=== PATIENT | male | born 1955 | race Caucasian/White ===

== ENCOUNTER → 2017-12-13 12:10 | Outpatient (CLI) | payer OTHER, SELFPAY ==
[2017-12-16 12:08] LABS: Creatinine, Urine 131.4 mg/dL (Not Estab.); N-Telopeptide, Urine 692 nmol BCE (Not Estab.)
[2017-12-16 14:12] LABS: NTX:Creatinine Ratio, Urine 60 (0-62)
== END ==
PROVIDERS: Family Provider Internal Medicine; PCP Internal Medicine; Visit Provider Internal Medicine Endocrinology, Diabetes & Metabolism
DX: M81.8 Other osteoporosis without current pathological fracture (principal); Z87.310 Personal history of (healed) osteoporosis fracture
CPT/HCPCS: 82523

== ENCOUNTER → 2019-09-26 08:22 | Outpatient (CLI) | payer OTHER, SELFPAY ==
--- NOTE | 2019-09-26 08:30 | BD_ITS ---
STUDY: DUAL ENERGY X-RAY ABSORPTIOMETRY / DXA REASON FOR EXAM: Male, 64 years old. History of osteoporosis. Loss of height. TECHNIQUE: Bone Mineral Density (BMD) measurements of lumbar spine and bilateral hips were obtained. COMPARISON: Comparison is made with prior examination dated September 23, 2017. FINDINGS: Lumbar Spine (L1-L4): g/cm2 (0.658) / T-score (-4.8) / Z-score (-4.4) Findings are suggestive of osteoporosis with a high fracture risk. Left Femur Total: g/cm2 (0.613) / T-score (-3.4) / Z-score (-2.9) Left Femoral Neck: g/cm2 (0.609) / T-score (-3.5) / Z-score (-2.5) Right Femur Total: g/cm2 (0.558) / T-score (-3.8) / Z-score (-3.3) Right Femoral Neck: g/cm2 (0.586) / T-score (-3.7) / Z-score (-2.7) The T-Scores on the most recent prior examination were: Lumbar Spine (L1-L4): There has been improvement of bone density since the previous examination. Left Femur Total: which represents a worsening of 1%. Right Femur Total: which represents an improvement of 6.5%. BD/Dexa Bone Density Study IMPRESSION: The patient is considered osteoporotic as outlined below according to World Vidal Organization (WHO) criteria with a high fracture risk. There has been improvement of bone density since the previous examination. Reference Information: The T-score is the number of standard deviations above or below the standard which is normal for young adults at their peak bone mineral density. The World Health Organization (WHO) interprets the T-scores as follows: Above -1 Normal bone density Between -1 and -2.5 Osteopenia Equal to / or below -2.5 Osteoporosis As a practical clinical guideline, osteopenia may be graded as follows: Mild -1 through -1.5 Moderate -1.6 through -2.0 Severe -2.1 through -2.4 The Z-score is the number of standard deviations above or below age-matched controls. A Z-score of less than -1.5 would be considered abnormal. References: 1. NIH Osteoporosis and Related Bone Diseases http://www.osteo.org 2. International Society for Clinical Densitometry http://www.iscd.org 3. National Osteoporosis Foundation http://www.nof.org Electronically Signed: Scooter Dejesus, at 10:16 EST , Service support ,
== END ==
PROVIDERS: Family Provider Internal Medicine; PCP Internal Medicine
DX: M81.8 Other osteoporosis without current pathological fracture (principal)
CPT/HCPCS: 77080

== ENCOUNTER → 2020-12-13 08:14 | Outpatient (CLI) | payer OTHER, SELFPAY ==
[2020-12-13 12:07] LABS: Absolute Lymphocyte Count 1.85 X10^3/uL (0.83-4.51); Absolute Neutrophil Count 5.3 X10^3/uL (2.0-7.7); Basophil# 0.07 X10^3/uL; Basophil% 0.9 % (0-1); Eosinophil# 0.27 X10^3/uL; Eosinophils% 3.3 % (0-5); Hematocrit 44.6 % (40-54); Hemoglobin 14.1 g/dL (13.0-16.5); Lymphocyte # 1.85 X10^3/ul (4.0); Lymphocyte % 22.5 % (19-41); Mean Corp Hgb Conc 31.6 g/dL (32-36); Mean Corpuscular Hgb 28.8 pg (27.0-32.0); Monocyte# 0.68 X10^3/uL; Monocyte% 8.3 % (0-10); NRBC Flagged by Analyzer 0 % (0-5); Neutrophil # 5.31 X10^3/uL (2.7-7.7); Neutrophil % 64.6 % (47-70); Platelet Count 335 K/mm3 (150-450); RBC Distribution Width CV 12.9 % (11.6-14.6); RBC Distribution Width SD 42.8 fl (35.1-43.9); White Blood Count 8.2 K/mm3 (4.4-11.0)
[2020-12-13 12:54] LABS: Hemoglobin A1c 5.2 % (3.8-5.6)
[2020-12-13 13:23] LABS: ALB/GLOB Ratio 1.3 RATIO (0.9-2.4); AST(SGOT) 21 U/L (15-37); Alanine Aminotransfer ALT/SGPT 42 U/L (16-61); Albumin, Serum 4.1 g/dL (3.2-5.0); Alkaline Phosphatase 92 U/L (45-117); Anion Gap 6 (5-15); BUN 24 mg/dL (7-18); BUN/Creat Ratio 16.1 RATIO (10-20); Calcium,Total 9.1 mg/dL (8.5-10.1); Chloride 108 mmol/L (98-107); Cholesterol 209 mg/dL (200); Creatinine, Serum 1.49 mg/dL (0.70-1.30); EST Glomerular Filtration Rate 51 mL/min (>60); Est Glom Filt Rate - Afr Amer 61 mL/min (>60); Globulin 3.2 g/dL (2.2-4.2); Glucose 85 mg/dL (74-106); High Density Lipoprotein 52 mg/dL; PSA,Total - Annual Screen 1.68 ng/mL (0.00-4.00); Potassium 4.7 mmol/L (3.5-5.1); Protein, Total 7.3 g/dL (6.4-8.2); Sodium Level 140 mmol/L (136-145); Thyroid Stim Hormone (TSH) 0.81 uIU/mL (0.358-3.74); Triglycerides 167 mg/dL; Very Low Density Lipoprotein 33 mg/dL (5-40)
== END ==
PROVIDERS: PCP Internal Medicine; Referring Provider Internal Medicine; Visit Provider Internal Medicine
DX: R53.83 Other fatigue (principal); M81.0 Age-related osteoporosis without current pathological fracture; K21.9 Gastro-esophageal reflux disease without esophagitis; R51.9 Headache, unspecified
CPT/HCPCS: 36415; 80053; 80061; 83036; 84153; 84443; 85025; G0103

== ENCOUNTER → 2020-12-23 08:02 | Outpatient (CLI) | payer OTHER, SELFPAY ==
[2015-09-25 11:25] VITALS: BMI 20.9
--- NOTE | 2020-12-23 08:09 | ECHOD_ITS ---
Reason For Study: MURMUR Procedure This was a 2D Doppler, Color Flow transthoracic echocardiogram. Exam performed in department. Left Ventricle Normal LV size. Left ventricular systolic function is normal. The estimated ejection fraction is 60 %. Stage 1 diastolic dysfunction. No regional wall motion abnormalities noted. Right Ventricle Normal RV size. Normal systolic function. Atria Normal left atrium. Normal right atrium. Mitral Valve Bileaflet diffuse mitral valve thickening. Mild (1+) mitral valve insufficiency. Tricuspid Valve Normal tricuspid valve. Mild tricuspid valve insufficiency. Aortic Valve Normal aortic valve. Pulmonic Valve Normal pulmonic valve. Great Vessels Normal aortic root. The pulmonary artery is normal size. Normal inferior vena cava. Pericardium/Pleural No pericardial effusion. MMode/2D Measurements & Calculations LVIDd: 4.3 cm IVSd: 0.87 cm Ao root diam: 3.2 cm LVIDs: 3.1 cm LVPWd: 0.85 cm LA dimension: 3.0 cm RVDd: 3.3 cm FS: 28.3 % LAV(MOD-bp): 31.1 ml LA A4 area: 12.2 cm2 LAV(MOD-bp) Indexed: 18.8 ml/m2 LAV(MOD-sp2): 28.6 ml LAV(MOD-sp4): 28.9 ml Time Measurements MV dec time: 0.21 sec Doppler Measurements & Calculations MV E max brendan: 66.5 cm/sec Lat Peak E' Brendan: 8.5 cm/sec Med Peak E' Brendan: 7.5 cm/sec MV A max brendan: 50.4 cm/sec E/E' lat: 7.8 E/E' med: 8.9 MV E/A: 1.3 Ao V2 max: 115.7 cm/sec LV V1 max: 99.0 cm/sec PA V2 max: 85.3 cm/sec Ao max P.4 mmHg LV V1 max P.9 mmHg TR max brendan: 204.0 cm/sec TR max P.6 mmHg Interpretation Summary Normal LV size. Left ventricular systolic function is normal. The estimated ejection fraction is 60 %. Stage 1 diastolic dysfunction. Mild tricuspid valve insufficiency. Ordering Physician: Ami Joseph Referring Physician: Jagjit Pandey Performed By: Kathy Melendez, IVANA, RVT
== END ==
PROVIDERS: PCP Internal Medicine; Referring Provider Internal Medicine Cardiovascular Disease; Visit Provider Internal Medicine Cardiovascular Disease
DX: I38 Endocarditis, valve unspecified (principal)
CPT/HCPCS: 93306

== ENCOUNTER → 2020-12-25 10:18 | Outpatient (CLI) | payer OTHER, SELFPAY ==
[2015-09-25 11:25] VITALS: BMI 20.9
== END ==
PROVIDERS: PCP Internal Medicine; Referring Provider Internal Medicine; Visit Provider Internal Medicine
DX: R51.9 Headache, unspecified (principal)
CPT/HCPCS: 95806

== ENCOUNTER → 2021-02-04 20:35 | Outpatient (CLI) | payer OTHER, SELFPAY ==
[2021-01-10 14:17] VITALS: BMI 22.3
== END ==
PROVIDERS: PCP Internal Medicine; Visit Provider Internal Medicine
DX: G47.33 Obstructive sleep apnea (adult) (pediatric) (principal)
CPT/HCPCS: 95810

== ENCOUNTER → 2021-07-01 | Outpatient (CLI) | payer OTHER, SELFPAY ==
[2021-07-01 11:15] VITALS: BMI 22.6
[2021-07-01 12:16] LABS: Mucous, Urine 0 SEEN /hpf (<or=2+)
[2021-07-01 14:55] LABS: Color, Urine Yellow (Yellow); Glucose, Dipstick Normal (Normal); Ketone-Dipstick Negative (Negative); Leukocyte Esterase-Dipstick Negative /ul (Negative); Nitrite-Dipstick Negative (Negative); Occult Blood-Urine 25 /ul (Negative); Protein-Dipstick Negative (Negative); Specific Gravity, Urine 1.015 (1.002-1.030); Urine Bilirubin Dipstick Negative (Negative); Urine Clarity Clear (Clear); Urine Urobilinogen Normal (Normal)
[2021-07-01 15:06] LABS: Bacteria RARE /hpf (None Seen); Red Blood Cells-Urine 0-5 SEEN /hpf (0-5); Squamous Epithelial Cells - UA 0-5 SEEN /hpf (0-5); White Blood Cells 0-5 SEEN /hpf (0-5)
== END | disposition home or self-care (01) ==
LOC: LABSPEC 12:04
PROVIDERS: PCP Internal Medicine; Visit Provider Internal Medicine
DX: R31.9 Hematuria, unspecified (principal)
CPT/HCPCS: 81001

== ENCOUNTER → 2021-07-09 07:27 | Outpatient (CLI) | payer OTHER, SELFPAY ==
[2021-07-01 11:15] VITALS: BMI 22.6
--- NOTE | 2021-07-09 07:28 | US_ITS ---
HISTORY: hematuria. TECHNIQUE: Hoffman scale and color Doppler sagittal and transverse images were obtained of the kidneys. # of images incl. paperwork: 88. COMPARISON: None. FINDINGS: RIGHT KIDNEY: 8.1 cm in length. Cortical thickness 14 mm. Echogenicity within normal limits. No hydronephrosis. 1.9 cm cyst. LEFT KIDNEY: 8.6 cm in length. Cortical thickness 15 mm. Echogenicity within normal limits. No hydronephrosis. 1.7 cm cyst. URINARY BLADDER: Prominent bladder wall with underdistention at 47 cc. Bilateral ureteral jets visualized. PROSTATE GLAND: Enlarged at 5.5 x 5.5 x 3.9 cm with impression on the bladder base and a 3.3 cm nodule. OTHER: Multiple gallstones. US/Kidney and Bladder IMPRESSION: No hydronephrosis. Bilateral renal cysts. Mild bladder wall thickening from underdistention or cystitis. Enlarged prostate gland with a 3.3 cm nodule or mass. at 1003 Reported and signed by: Madalyn Kevin MD Electronically Signed: Madalyn Kevin MD at 10:02 EDT Tel , Service support ,
== END ==
PROVIDERS: PCP Internal Medicine; Referring Provider Internal Medicine; Visit Provider Internal Medicine
DX: R31.9 Hematuria, unspecified (principal)
CPT/HCPCS: 76770

== ENCOUNTER → 2021-07-23 08:26 | Outpatient (CLI) | payer OTHER, SELFPAY ==
--- NOTE | 2021-07-23 08:30 | CT_ITS ---
STUDY: CT ABDOMEN AND PELVIS WITH AND WITHOUT CONTRAST REASON FOR EXAM: Male, 66 years old. GROSS HEMATURIA RADIATION DOSAGE (If Supplied By Facility): CTDIvol = ( 14.01 ) mGy, DLP = ( 1295.37 ) mGycm TECHNIQUE: Transaxial images were obtained from the dome of the diaphragm to the symphysis pubis without oral contrast. IV 100mL Isovue-300 was administered. Sagittal and coronal images were reconstructed. Individualized dose optimization techniques were used for this CT. COMPARISON: Comparison is made with prior renal sonogram dated 07/09/2021. FINDINGS: Emphysematous changes at the lung bases with linear scarring. The visualized portions of the heart are within normal limits. Normal liver. There are multiple small gallstones. Normal spleen. Normal pancreas. Normal bilateral adrenal glands. There is a 1.7 cm cyst in the upper lateral aspect of the midportion of the right kidney as well as a 1.1 cm in the medial aspect of the right kidney. There is also evidence of a 1.3 cm cyst in the lower pole of the right kidney. There is a 1.8 cm cyst in the anterior medial aspect of the upper pole of the left kidney. Normal visualized stomach. Normal small intestine. There are multiple colonic diverticula consistent with diverticulosis. The appendix is visualized and appears normal. Normal abdominal aorta. Normal inferior vena cava. Normal retroperitoneum. Normal urinary bladder. There are prostatic calcifications. The prostate measures 3.7 cm x 4.7 cm. Normal abdominal wall. At least 50% collapse of the L2 vertebra. There is some loss of height of the superior endplate of the T12 vertebrae as well as the superior aspect of the L4 vertebra. There is evidence of a 2.4 cm x 3.5 cm cystic structure in the posterior aspect of the sacrum on the right side extending into the right sacral foramen suggestive of a TARLOV cyst. 8 mm rounded sclerotic focus in the anterior superior aspect of the L3 vertebrae. CT/CT Abd/Pelvis W/WO Contrast IMPRESSION: Bilateral renal cysts. Prostatic calcification and enlargement. This causes an indentation at the bladder base. Findings suggestive of a TARLOV cyst in the right hemisacrum. Electronically Signed: Scooter Dejesus MD at 14:29 EDT , Service support ,
[2021-07-23 08:40] LABS: CREATININE FINGERSTICK 1.2 mg/dL (0.70-1.30); EGFR FINGERSTICK > 60.0000 mL/min (>60)
== END ==
PROVIDERS: PCP Internal Medicine; Referring Provider Urology; Visit Provider Urology
DX: R31.0 Gross hematuria (principal)
CPT/HCPCS: 74178; Q9967

== ENCOUNTER → 2021-07-31 11:56 | Outpatient (CLI) | payer OTHER, SELFPAY ==
[2021-07-31 15:50] LABS: PSA,Total- Diagnostic 1.33 ng/mL (0.0-4.0)
== END ==
PROVIDERS: PCP Internal Medicine; Referring Provider Urology; Visit Provider Urology
DX: R31.0 Gross hematuria (principal)
CPT/HCPCS: 36415; 84153

== ENCOUNTER → 2023-03-17 | Outpatient (CLI) | payer MEDICARE, BC, SELFPAY ==
--- NOTE | 2023-03-17 08:05 | MRI_ITS ---
EXAM: MR HEAD WITHOUT AND WITH INTRAVENOUS CONTRAST, INTERNAL AUDITORY CANAL PROTOCOL CLINICAL INDICATION: ASYMMETRIC HEARING LOSS RIGHT EAR TECHNIQUE: Multiplanar and multisequence MR images of the internal auditory canal were obtained without and with intravenous contrast. CONTRAST: 11ML IV CLARISCAN COMPARISON: No relevant prior studies available. FINDINGS: CRANIAL NERVES: Normal. No mass. No abnormal enhancement. COCHLEA AND SEMICIRCULAR CANALS: Normal. CEREBELLOPONTINE ANGLES: Normal. No mass. BRAIN AND EXTRA-AXIAL SPACES: Unremarkable as visualized. No intra- or extra-axial hemorrhage. No intracranial mass or mass effect. There is preservation of the martinez/white matter interface. Posterior fossa structures are unremarkable. Ventricles are appropriate for age. No hydrocephalus. Basal cisterns are patent. BONES/JOINTS: Normal. No discrete lytic or blastic abnormalities. SINUSES: Unremarkable as visualized. Clear. MASTOID AIR CELLS: Mild mucosal thickening noted within the left mastoid sinus. ORBITS: Unremarkable as visualized. Both globes, extraocular muscles, optic nerves and retrobulbar fat appear unremarkable. MRI/Brain W/WO Contrast IMPRESSION: No acute intracranial abnormality. Normal internal auditory canals and inner ear structures. Mild mucosal thickening of the left mastoid sinus. Electronically Signed: Tomas Cheung MD at 16:55 EDT ,
[2023-03-17 08:56] LABS: EGFR FINGERSTICK > 60.0000 mL/min (>60)
== END | disposition home or self-care (01) ==
LOC: MRI 07:57
PROVIDERS: PCP Internal Medicine; Referring Provider Otolaryngology; Visit Provider Otolaryngology
DX: H90.3 Sensorineural hearing loss, bilateral (principal)
CPT/HCPCS: 70553; A9575

== ENCOUNTER → 2023-08-11 | Outpatient (CLI) | payer MEDICARE, BC, SELFPAY ==
[2023-08-11 11:25] LABS: Hematocrit 39.4 % (40-54); Hemoglobin 12.6 g/dL (13.0-16.5); Mean Corpuscular Hgb 28.1 pg (27.0-32.0); Mean Corpuscular Volume 87.9 fL (80-94); Mean Platelet Vol. 9.7 fl (6.2-12.0); Platelet Count 359 K/mm3 (150-450); RBC Distribution Width CV 14.2 % (11.6-14.6); Red Blood Count 4.48 M/mm3 (4.6-6.2); White Blood Count 8.2 K/mm3 (4.4-11.0)
[2023-08-11 11:43] LABS: Albumin, Serum 3.9 g/dL (3.2-5.0); BUN 22 mg/dL (7-18); BUN/Creat Ratio 15.5 RATIO (10-20); Calcium,Total 8.3 mg/dL (8.5-10.1); Chloride 111 mmol/L (98-107); Creatinine, Serum 1.42 mg/dL (0.70-1.30); EST Glomerular Filtration Rate 53 mL/min (>60); Est Glom Filt Rate - Afr Amer 64 mL/min (>60); Ferritin 12 ng/mL (26-388); Glucose 86 mg/dL (74-106); Iron 66 ug/dL (65-175); Iron Binding Capacity,Total 410 ug/dL (250-450); Microalbumin,Random Urine 30.5 mg/L (NO RANGE EST.); Microalbumin:Creatinine Ratio 18.3 mg/g CRE (<30 mg/g CRE); Phosphorus 2.1 mg/dL (2.5-4.9); Sodium Level 141 mmol/L (136-145)
[2023-08-12 16:10] LABS: Cytoplasmic Ab (C-ANCA) <1:20 titer (Neg:<1:20); Perinuclear Ab (P-ANCA) <1:20 titer (Neg:<1:20)
[2023-08-13 11:09] LABS: Anti-Nuclear Antibody Test Negative (.)
== END | disposition home or self-care (01) ==
PROVIDERS: PCP Internal Medicine; Visit Provider Internal Medicine Nephrology
DX: R31.29 Other microscopic hematuria (principal); N18.31 Chronic kidney disease, stage 3a; D64.9 Anemia, unspecified
CPT/HCPCS: 36415; 80069; 82043; 82570; 82728; 83540; 83550; 85027; 86038; 86256

== ENCOUNTER → 2023-08-14 | Outpatient (CLI) | payer MEDICARE, BC, SELFPAY ==
--- NOTE | 2023-08-14 08:00 | US_ITS ---
STUDY: RENAL ULTRASOUND - COMPLETE REASON FOR EXAM: Male, 68 years old. BENIGN PROSTATIC HYPERPLASIA TECHNIQUE: Ultrasound evaluation of the kidneys was performed with real-time and static syed-scale imaging. COMPARISON: 07/09/2021 FINDINGS: RIGHT KIDNEY: Normal location of the right kidney, which is normal in size. The right kidney measures 7.1 cm. There is a normal cortex of the right kidney. The renal cortex measures 1.1 cm. There is no right renal mass or cyst. There are no right renal calculi. There is no right hydronephrosis. DISTAL RIGHT URETER: There is non-visualization of the distal right ureter. There is no demonstrated right ureterovesical junction calculus. There is a visualized right ureteral jet. LEFT KIDNEY: Normal location of the left kidney, which is normal in size. The left kidney measures 8.6 cm. There is a normal cortex of the left kidney. The renal cortex measures 1.1 cm. 2 cm cyst in the upper pole the left kidney. Another 1 cm cyst in the upper pole the left kidney. There are no left renal calculi. There is no left hydronephrosis. DISTAL LEFT URETER: There is non-visualization of the distal left ureter. There is no demonstrated left ureterovesical junction calculus. There is a visualized left ureteral jet. BLADDER: The distended urinary bladder has a volume of 75 ml. The empty urinary bladder has a volume of ml. There is a normal wall thickness of the distended urinary bladder. There is no demonstrated mass within the urinary bladder. There are no demonstrated bladder calculi. US/Kidney and Bladder IMPRESSION: Normal ultrasound of the kidneys and urinary bladder. Left renal cysts. Electronically Signed: Kevin Bautista MD at 22:40 EDT ,
== END | disposition home or self-care (01) ==
LOC: US 07:59
PROVIDERS: PCP Internal Medicine; Referring Provider Internal Medicine Nephrology; Visit Provider Internal Medicine Nephrology
DX: N40.0 Benign prostatic hyperplasia without lower urinary tract symptoms (principal)
CPT/HCPCS: 76770

== ENCOUNTER → 2023-09-08 | Outpatient (CLI) | payer MEDICARE, BC, SELFPAY ==
[2023-09-08 12:15] LABS: Hematocrit 38.4 % (40-54); Hemoglobin 12.4 g/dL (13.0-16.5); Mean Corp Hgb Conc 32.3 g/dL (32-36); Mean Corpuscular Hgb 28.4 pg (27.0-32.0); Mean Corpuscular Volume 88.1 fL (80-94); Mean Platelet Vol. 9.3 fl (6.2-12.0); Platelet Count 382 K/mm3 (150-450); RBC Distribution Width CV 13.8 % (11.6-14.6); RBC Distribution Width SD 44.4 fl (35.1-43.9); Red Blood Count 4.36 M/mm3 (4.6-6.2); White Blood Count 7.5 K/mm3 (4.4-11.0)
[2023-09-08 12:29] LABS: Albumin, Serum 3.8 g/dL (3.2-5.0); BUN 24 mg/dL (7-18); BUN/Creat Ratio 17.1 RATIO (10-20); Calcium,Total 9.1 mg/dL (8.5-10.1); Chloride 108 mmol/L (98-107); EST Glomerular Filtration Rate 54 mL/min (>60); Est Glom Filt Rate - Afr Amer 65 mL/min (>60); Ferritin 12 ng/mL (26-388); Glucose 95 mg/dL (74-106); Iron 55 ug/dL (65-175); Iron Binding Capacity,Total 397 ug/dL (250-450); Phosphorus 2.9 mg/dL (2.5-4.9); Potassium 4.1 mmol/L (3.5-5.1); Sodium Level 139 mmol/L (136-145)
[2023-09-08 12:37] LABS: Microalbumin,Random Urine 9.8 mg/L (NO RANGE EST.); Microalbumin:Creatinine Ratio 8.7 mg/g CRE (<30 mg/g CRE)
[2023-09-10 08:13] LABS: Anti-Nuclear Antibody Test Negative (.)
[2023-09-10 14:09] LABS: Cytoplasmic Ab (C-ANCA) <1:20 titer (Neg:<1:20); Perinuclear Ab (P-ANCA) <1:20 titer (Neg:<1:20)
== END | disposition home or self-care (01) ==
LOC: POLAB3 11:30
PROVIDERS: PCP Internal Medicine; Visit Provider Internal Medicine Nephrology
DX: N18.31 Chronic kidney disease, stage 3a (principal); R31.29 Other microscopic hematuria; D64.9 Anemia, unspecified
CPT/HCPCS: 36415; 80069; 82043; 82570; 82728; 83540; 83550; 85027; 86038; 86256

== ENCOUNTER → 2023-09-16 | Outpatient (CLI) | payer MEDICARE, BC, SELFPAY ==
[2023-09-16 13:33] LABS: International Normalized Ratio 0.9; Prothrombin Time (Protime)PT. 12.5 SECONDS (11.7-14.9)
[2023-09-16 13:34] LABS: Partial Thromboplast Time 33.1 Seconds (24.1-36.2)
== END | disposition home or self-care (01) ==
LOC: POLAB3 11:51
PROVIDERS: PCP Internal Medicine; Visit Provider Internal Medicine Nephrology
DX: N18.31 Chronic kidney disease, stage 3a (principal); R31.29 Other microscopic hematuria
CPT/HCPCS: 36415; 85610; 85730

== ENCOUNTER 2023-09-21 08:10 | Outpatient (CLI) | payer MEDICARE, BC, SELFPAY ==
[2023-09-21] VITALS (12 sets, daily range): BP systolic 119–137; BP diastolic 80–105; PULSE 77–92; RESP 18; TEMP 36.6–36.8; O2SAT 97–100; BMI 22.6
[2023-09-21] MEDS: 0.9% Saline Lock 10 ML Syringe IV (09:00)
[2023-09-21] MEDS: Midazolam 2 MG/2 ML Syringe IV (09:30)
[2023-09-21] MEDS: 0.9% Normal Saline (250mL Bag) 250 ML 15 ML IV (09:30)
[2023-09-21] MEDS: fentaNYL 100 MCG/2 ML Ampul IV (09:30)
[2023-09-21] MEDS: Lidocaine 2% (20 ml mdv) 20 ML Vial INFILT (09:30)
--- NOTE | 2023-09-21 09:35 | KID_PTH ---
PATIENT: KADIE MENA LOC: CT U#:[id number] AGE/SX: 68/M ROOM: RE09/21/[address]: Dr. Cherelle Bonilla DO : 1955 BED: DIS: 09/21/2023 SPEC #: [id number] RECD: 09/21/23 09:50 STATUS: ELSIE JOHAN #: [id number] LUL: 09/21/23 09:[address]: Cherelle Bonilla DEPT: SURGICAL PATHOLOGY RECD BY: Virginia Meza ENTERED: 09/21/23 10:01 SP TYPE: KIDNEY OTHR DR: Dr. 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 Interstitial fibrosis, 10-15%. Tubular profiles demonstrate intact red blood cells; clinical history of microscopic hematuria (see comment). Electron microscopy findings of variably thin basement membranes (variable basement membrane thinning). (See comment.) COMMENT The pattern best fits with renal parenchyma with chronic vascular and microvascular disease including glomerular sclerosis 13 of (total) 44 glomeruli demonstrate global sclerosis and overall shrunken nature/ diameter. Vascular medial and intimal thickening is also noted. No active glomerulonephritis is identified. Tubular profiles demonstrate intact red blood cells with the lumens. Immunofluorescent microscopy is uniformly negative. Electron microscopy reveals basement membranes with variable thickness including normal thickness and arrangement alternating with areas of thinning including areas of 150 nm and less. No uniform thin basement membranes are identified, however. This is seen as multiple areas of normal thickness alternating with areas of thin basement membrane. The background (chronic) changes are those of intermediate-sized and small vascular disease with associated glomerulosclerosis. Possibilities could include hypertension and essential hypertension, among others. Clinical correlation and correlation with patient history and medication history may be helpful. No interstitial nephritis is identified. Interstitial fibrosis mirrors glomerulosclerosis/global in the current case. Multiple foci of thin basement membranes are identified and otherwise open/intact glomerulus within electron microscopy. This is seen in combination with tubular profiles demonstrating red blood cells as well as clinical history of microscopic hematuria. Possibilities could include: Variations of thin basement membrane disease (note: No uniform thin basement membranes are seen; rather, variable thickness basement membranes are identified within open glomeruli) as well as compensatory glomerulomegaly (in the background of global glomerulosclerosis) with compensatory hyperfiltration and (possible) segmental thinning of basement membrane. No immune deposits or electron dense deposits are seen in the clinical correlation and follow-up (especially regarding collagen disease and/or thin basement membrane form fruste disease) may be helpful, as clinically directed. MICROSCOPIC DESCRIPTION LIGHT MICROSCOPY: Good biopsy specimen consisting of near equal portions of renal cortex and medulla and up to 36 glomeruli or portions of glomeruli for histologic evaluation. Eleven glomeruli demonstrate global sclerosis and oval shrunken nature/diameter with associated thyroidization of surrounding tubules. Intermediate-sized vascular strictures demonstrate intimal fibrosis and mural thickening. Arteriolar hyalinosis is also seen. No increase in mesangial matrix or cellularity is identified in the remaining glomeruli, some of which demonstrate enlarged diameter. No acute inflammation is seen. No epithelial crescents are seen. No significant interstitial inflammatory infiltrate is identified. Numerous tubular profiles demonstrate/contain red blood cells. PAS stain highlights sclerotic glomeruli as well as arteriolar hyalinosis in addition to mural thickening of intermediate-sized vascular structures. Few end-stage tubules (thyroidization) are also identified as are atrophic/atretic tubules adjacent to sclerotic glomeruli. No epithelial crescents are seen. No significant tubular resorption are identified within tubular epithelium/epithelial cells. Burns (silver) stain demonstrates sclerotic glomeruli as well as open glomeruli with intact basement membranes without breaks, splits or irregular luminal outlines. Vascular (mural) thickening is noted. Trichrome stain is negative for fuchsinophilic deposits within open glomeruli and also highlights intimal fibrosis and intermediate-sized vascular structures. Interstitial fibrosis is estimated at 10-15%. Tubular profiles (lumina) demonstrate intact red blood cells. No epithelial crescents or areas of active inflammation or glomerular necrosis are seen. Congo red stain is negative for congophilia and is negative for birefringence and dichromatism by polarization microscopy. IMMUNOFLUORESCENCE: Tissue submitted for immunofluorescence microscopy demonstrates renal cortex and medulla and up to three glomeruli or portions of glomeruli for histologic evaluation. IgG, IgA, IgM, C3, C1q, fibrin and albumin are negative within glomeruli, tubules and vascular structures. Sycamore and lambda light chains demonstrate 1+ (equal pattern of staining) positivity within tubular contents, but are negative within vascular structures and glomeruli. ELECTRON MICROSCOPY: Toluidine blue-stain sections (thick/head stock transfer clerk sections) reveal five glomeruli or portions of glomeruli for histologic evaluation. Two glomeruli demonstrate global sclerosis and overall shrunken nature/diameter while remaining glomeruli demonstrate open capillary loops with normal mesangial matrix and cellularity. Few tubular profiles demonstrate intact red blood cells. Open glomerulus demonstrates mild capillary loops congestion. Ultrastructure examination is negative for electron dense deposits and demonstrates normal podocyte arrangement/morphology around basement membranes that demonstrate variable thickness including normal thickness regions alternating with thin basement membranes. No uniform thinning is identified, however. No significant is foot process effacement is seen. No mesangial electron dense deposits or basement membrane electron-dense deposits are seen. GROSS DESCRIPTION The specimen is sent entirely to [facility] for diagnosis. Received in transport medium labeled with the patient's name and left kidney, the specimen consists of five cylindrical cores of arroyo-yellow renal parenchyma that are 0.3 to 1.7 cm in maximum dimension. Simulation Developer section is submitted for immunofluorescent microscopic studies. Simulation Developer section is submitted for electron microscopic studies. The remainder of the specimen is entirely submitted as A1.
--- NOTE | 2023-09-21 11:03 | PCM.OP.PRO ---
Procedure Report Date of Procedure: 09/21/23 Assessment & Plan Assessment/Plan (1) Other microscopic hematuria: PLAN: PROCEDURE: CT GUIDED LEFT PERCUTANEOUS KIDNEY BIOPSY. ORDERING PROVIDER: Dr. Cherelle Bonilla INDICATION: Male, 68 years old. Microscopic hematuria. PROVIDER: JUAN MIGUEL Albrecht CONSENT: Written informed consent was obtained having explained the risks, benefits and alternatives in detail with the patient. The specific risk of hemorrhage requiring further treatment or intervention was detailed and accepted. The patient accepted the risks and agreed to proceed. Laboratory review and clinical assessment was performed. PRE-PROCEDURE SEDATION ASSESSMENT: Current history and physical dictated by referring provider and reviewed. No clinical changes since date of exam. Patient has an ASA Class of 2. PROCEDURAL SEDATION PROTOCOL: The Drugs used were: 2 mg Versed, IV, and 50 mcg Fentanyl, IV. The sedation time was: 15 minutes, starting at 0930 and terminated at 0945. The procedural sedation protocol was independently monitored by the department nurse. RADIATION DOSAGE (If Supplied By Facility): CTDIvol = 13.75 mGy, DLP = 527.56 mGycm Individualized dose optimization techniques were used for this CT. TECHNIQUE: The patient was placed on the CT table in the prone position. Multiple axial images were obtained from the lung base through the caudal extent of the kidneys. An appropriate entry site was identified and a olivier made on the skin. The skin overlying the left posterior flank was prepped and draped in sterile fashion. 2% lidocaine was administered subcutaneously for local anesthesia. periphery of the left lower pole kidney. A total of 4 core specimens were obtained. Specimens were microscopically reviewed by pathology in the CT suite and placed in formalin solution for further analysis. The needle was withdrawn. Hemostasis was achieved with manual compression and a sterile dressing was applied. The patient tolerated the procedure well without immediate complications. The patient returned to the holding bay in stable condition for nursing monitoring, per protocol. IMPRESSION: 1. Successful CT guided percutaneous left kidney biopsy. Pathology results are pending. 2. Procedural Sedation protocol utilized with independent monitoring by the department nurse. Procedures Radiology Radiology CT Procedures: 47743 Biopsy Kidney
== END 2023-09-21 23:59 | disposition home or self-care (01) ==
LOC: CT 08:11
PROVIDERS: PCP Internal Medicine; Referring Provider Internal Medicine Nephrology; Visit Provider Internal Medicine Nephrology
DX: R31.29 Other microscopic hematuria (principal); N18.9 Chronic kidney disease, unspecified
CPT/HCPCS: 50200; 77012; 88300; 88305; 88313; 88346; 88348; 88350; 99156; J7050

== ENCOUNTER → 2023-10-06 | Outpatient (CLI) | payer MEDICARE, BC, SELFPAY ==
[2023-10-06 12:55] LABS: Hematocrit 37.5 % (40-54); Hemoglobin 11.9 g/dL (13.0-16.5); Mean Corp Hgb Conc 31.7 g/dL (32-36); Mean Corpuscular Hgb 28.5 pg (27.0-32.0); Mean Corpuscular Volume 89.9 fL (80-94); Mean Platelet Vol. 9.2 fl (6.2-12.0); Platelet Count 399 K/mm3 (150-450); RBC Distribution Width CV 13.9 % (11.6-14.6); RBC Distribution Width SD 45.1 fl (35.1-43.9); Red Blood Count 4.17 M/mm3 (4.6-6.2); White Blood Count 8.5 K/mm3 (4.4-11.0)
[2023-10-06 13:15] LABS: Albumin, Serum 3.6 g/dL (3.2-5.0); BUN 20 mg/dL (7-18); BUN/Creat Ratio 15.7 RATIO (10-20); Calcium,Total 8.3 mg/dL (8.5-10.1); Chloride 108 mmol/L (98-107); Creatinine, Serum 1.27 mg/dL (0.70-1.30); EST Glomerular Filtration Rate 60 mL/min (>60); Est Glom Filt Rate - Afr Amer 73 mL/min (>60); Glucose 91 mg/dL (74-106); Phosphorus 2.2 mg/dL (2.5-4.9); Sodium Level 142 mmol/L (136-145)
== END | disposition home or self-care (01) ==
LOC: POLAB3 12:37
PROVIDERS: PCP Internal Medicine; Visit Provider Internal Medicine Nephrology
DX: N18.31 Chronic kidney disease, stage 3a (principal)
CPT/HCPCS: 36415; 80069; 85027

== ENCOUNTER → 2023-10-20 | Outpatient (CLI) | payer MEDICARE, BC, SELFPAY ==
--- NOTE | 2023-10-20 07:47 | ECHOD_ITS ---
Reason For Study: ANNIKA Procedure This was a 2D Doppler, Color Flow transthoracic echocardiogram. Exam performed in department. Left Ventricle Normal LV size. Mild concentric left ventricular hypertrophy. The left ventricular ejection fraction is 60 %. Normal diastology for age. Right Ventricle Normal right ventricle. Atria The left and right atria are normal. Mitral Valve Mild diffuse mitral valve thickening. Moderately severe (3+) mitral valve insufficiency. Tricuspid Valve Mild tricuspid valve insufficiency. Normal pulmonary artery pressure. Aortic Valve Trisinus/trileaflet aortic valve. Mild (1+) aortic valve insufficiency. Pulmonic Valve The pulmonic valve is not well visualized. Great Vessels Normal sized aortic root. Pericardium/Pleural No pericardial effusion. MMode/2D Measurements & Calculations LVIDd: 3.6 cm IVSd: 1.2 cm Ao root diam: 3.5 cm LVIDs: 2.0 cm LVPWd: 0.92 cm RVDd: 3.7 cm FS: 43.6 % LAV(MOD-bp): 25.5 ml LVAd ap4: 29.3 cm2 SV(MOD-sp4): 48.7 ml LAV(MOD-bp) Indexed: 15.2 ml/m2 LVLd ap4: 8.6 cm LAV(MOD-sp2): 33.5 ml EDV(MOD-sp4): 81.2 ml LAV(MOD-sp4): 16.7 ml EDV(sp4-el): 85.2 ml LVAs ap4: 16.7 cm2 LVLs ap4: 7.1 cm ESV(MOD-sp4): 32.6 ml ESV(sp4-el): 33.3 ml EF(MOD-sp4): 59.9 % EF(sp4-el): 60.9 % SV(sp4-el): 51.9 ml LA A4 area: 9.7 cm2 LA dimension(2D): 2.8 cm RA A4 area: 16.7 cm2 TAPSE: 2.1 cm Time Measurements MV dec time: 0.24 sec Doppler Measurements & Calculations MV E max brendan: 63.5 cm/sec Lat Peak E' Brendan: 8.9 cm/sec Med Peak E' Brendan: 7.7 cm/sec MV A max brendan: 73.3 cm/sec E/E' lat: 7.1 E/E' med: 8.2 MV E/A: 0.87 Ao V2 max: 153.8 cm/sec LV V1 max: 118.9 cm/sec MV dec slope: 261.7 cm/sec2 Ao max P.5 mmHg LV V1 max P.7 mmHg Ao V2 mean: 109.8 cm/sec LV V1 mean P.3 mmHg Ao mean P.2 mmHg LV V1 mean: 85.4 cm/sec Ao V2 VTI: 22.1 cm LV V1 VTI: 17.2 cm AV (velocity ratio): 0.78 PA V2 max: 91.6 cm/sec TR max brendan: 202.1 cm/sec TR max P.3 mmHg ECHO/Echo Complete Interpretation Summary Mild concentric left ventricular hypertrophy. The left ventricular ejection fraction is 60 %. Mild diffuse mitral valve thickening. Moderately severe (3+) mitral valve insufficiency. Recommend KELSI or cardiac MRI for further evaluation if clinically indicated. Mild tricuspid valve insufficiency. Mild (1+) aortic valve insufficiency. Ordering Physician: Ami Joseph Referring Physician: Ami Joseph Performed By: Anh Cruz, IVANA, RVT
== END | disposition home or self-care (01) ==
LOC: CVS 07:46
PROVIDERS: PCP Internal Medicine; Referring Provider Internal Medicine; Visit Provider Internal Medicine
DX: G47.33 Obstructive sleep apnea (adult) (pediatric) (principal)
CPT/HCPCS: 93306

== ENCOUNTER → 2023-12-17 | Outpatient (CLI) | payer MEDICARE, BC, SELFPAY ==
[2023-12-17 11:21] LABS: ALB/GLOB Ratio 1.2 RATIO (0.9-2.4); AST(SGOT) 12 U/L (15-37); Alanine Aminotransfer ALT/SGPT 27 U/L (16-61); Albumin, Serum 3.9 g/dL (3.2-5.0); Alkaline Phosphatase 76 U/L (45-117); Anion Gap 5 (5-15); BUN 22 mg/dL (7-18); BUN/Creat Ratio 13.2 RATIO (10-20); Calcium,Total 9.9 mg/dL (8.5-10.1); Chloride 106 mmol/L (98-107); Creatinine, Serum 1.67 mg/dL (0.70-1.30); EST Glomerular Filtration Rate 44 mL/min (>60); Est Glom Filt Rate - Afr Amer 53 mL/min (>60); Globulin 3.3 g/dL (2.2-4.2); Glucose 89 mg/dL (74-106); Potassium 4.1 mmol/L (3.5-5.1); Protein, Total 7.2 g/dL (6.4-8.2); Sodium Level 140 mmol/L (136-145)
--- OUTSIDE RECORDS SUMMARY | 2023-12-17 12:52 | XMS RPT_ITS | CCD ---
Author Name Unknown Address [address] [place] [address] Organization [facility] Care Team Providers Care Car Builder Name Role Phone Unavailable Primary Care Provider Unavailbobbi Benitez MD, Emy Koo Primary Care Provider Chad Baez DO, Christine Unavailable Linda ANGELA, Igor Unavailable SONAM JAMES Referring Unavailable AMANDA ISBELL Referring Unavailable EMY BENITEZ Primary Care Unavailable ALIYA GLYNN Attending Unavailable AMANDA ISBELL Attending Unavailable Allergies Allergy Classification Reported Allergen(s) Allergy Type Date of Onset Reaction(s) Facility (13 sources) Sulfamethoxazole / Trimethoprim; Translations: [SULFAMETHOXAZOLE-TR IMETHOPRIM] Drug Allergy 09-08-20 05 Rash [facility] Work Phone: (12 sources) Environmental [Other] Propensity to adverse reactions 06-29-20 11 [facility] (1 source) OTHER; Translations: [OTHER] Propensity to adverse reactions (disorder) 06-29-20 11 [facility] [place] [facility] Medications Completed/Discontinued Medications Medication Drug Class(es) Dates Sig (Normalized) Sig (Original) Calcium (12 sources) Phosphate Binder, Calcium CALCIUM ORAL Take by mouth once daily. 0 Active Problems Active Problems Problem Classification Problem Date Documented Da te Episodic/Chronic Esophageal disorders (12 sources) Erosive esophagitis; Translations: [Ulcer of esophagus without bleeding] Onset: 03-04-2010 12-29-2011 Chronic Osteoporosis (18 sources) Idiopathic osteoporosis; Translations: [Other osteoporosis without current pathological fracture] Onset: 03-11-2020 Chronic Other upper respiratory disease (12 sources) Allergic rhinitis; Translations: [Allergic rhinitis, unspecified] 09-08-2005 Chronic Viral infection (1 source) Disease caused by 2019-nCoV; Translations: [COVID-19] 11-14-2023 Episodic Past or Other Problems Problem Classification Problem Date Documented Da te Episodic/Chronic Deficiency and other anemia (12 sources) Anemia; Translations: [Anemia, unspecified] Onset: 09-07-2009 09-07-2009 Episodic Hemorrhoids (12 sources) Hemorrhoids; Translations: [Unspecified hemorrhoids] Onset: 06-07-2008 06-07-2008 Episodic Other skin disorders (12 sources) Epidermoid cyst of skin; Translations: [Epidermal cyst] Onset: 11-26-2010 11-26-2010 Episodic Other skin disorders (12 sources) Seborrheic keratosis; Translations: [Other seborrheic keratosis] Onset: 11-26-2010 11-26-2010 Episodic Pathological fracture (12 sources) Pathological fracture of vertebra due to osteoporosis; Translations: [Age-related osteoporosis with current pathological fracture, vertebra(e), initial encounter for fracture] Onset: 04-22-2018 04-22-2018 Episodic Results Test Name Value Interpretation Reference Range Facil ity Vital Signs Date Time Vital Sign Value Performing Clinician Faci lity 07-21-2023 11:52-0400 Body temperature 97.9 [degF] Treatment [facility] Work Phone: [facility] 07-21-2023 11:52-0400 Diastolic blood pressure 96 mm[Hg] Treatment [facility] Work Phone: [facility] 07-21-2023 11:52-0400 Heart rate 69 /min Treatment [facility] Work Phone: [facility] 07-21-2023 11:52-0400 Respiratory rate 20 /min Treatment [facility] Work Phone: [facility] 07-21-2023 11:52-0400 Systolic blood pressure 141 mm[Hg] [facility] Work Phone: [facility] Encounters Encounter Date Encounter Type Care Provider Facility Start: 11-14-2023 End: 11-14-2023 Telemedicine consultation with patient Aliya Glynn APRN.DEPUTY [employer]ER[employer] BUILDING GUARD Work Phone: [facility] Start: 11-14-2023 End: 11-14-2023 ambulatory Talisha Carrillo RN [facility] Procedures Date Procedure Procedure Detail Performing Clinician Start: 05-01-2019 Adult depression scr eening assessment Amanda Isbell MD Work Phone: Start: 07-18-2015 Lipid 1996 panel - S calderon or Plasma [facility] Provider Start: 02-10-2010 Colonoscopy Amanda Isbell MD Work Phone: Plan of Treatment Date Care Activity Detail Author Start: 07-08-2026 DIABETES SCREEN DIABETES SCREEN [facility] Start: 07-08-2026 Diabetes Screening Diabetes Screening [facility] Start: 07-16-2025 Urine microalbumin profile [facility] Start: 06-15-2025 DIABETES SCREEN DIABETES SCREEN [facility] Start: 07-16-2023 Covid-19 Vaccine () Covid-19 Vaccine () [facility] Start: 07-16-2023 Influenza vaccination [facility] Start: 06-15-2023 End: 08-15-2023 25-hydroxyvitamin D3 [Mass/volume] in Serum or Plasma VITAMIN D 25 HYDROXY Lab Routine Idiopathic osteoporosis Expected: 06/15/2023, Expires: 08/15/2023 [facility] Work Phone: Immunizations Immunization Date Immunization Notes Care Provider Bridna soto 07-16-2015 tetanus toxoid, redu radames diphtheria toxoid, and acellular pertussis vaccine, adsorbed Amanda Isbell MD Work Phone: [facility] 08-05-2013 influenza virus vacc ine, unspecified formulation Amanda Isbell MD Work Phone: [facility] 08-30-2010 influenza virus vacc ine, unspecified formulation Amanda Isbell MD Work Phone: [facility] 08-08-2009 influenza virus vacc ine, unspecified formulation Amanda Isbell MD Work Phone: [facility] Work Phone: 09-30-2007 influenza virus vacc ine, unspecified formulation Amanda Isbell MD Work Phone: [facility] 09-13-2006 influenza virus vacc ine, unspecified formulation Amanda Isbell MD Work Phone: [facility] Work Phone: 06-08-2005 tetanus and diphther ia toxoids, adsorbed, preservative free, for adult use (2 Lf of tetanus toxoid and 2 Lf of diphtheria toxoid) Amanda Isbell MD Work Phone: [facility] Work Phone: 09-15-2002 pneumococcal polysaccharide vaccine, 23 valent Amanda Isbell MD Work Phone: [facility] Work Phone: Payers Date Payer Category Payer Medicare MEDICARE MEDICAR E A AND B [id number] 2021-Present [phone] [address] [address] [place] [address] Medicare [id number] 2021 Medicare [id number] 2021 Medicare [id number] 2021 Unknown ANTHEM ANTHEM ME DICARE SUPPLEMENT [id number] 2021-Present [phone] [address] [place] [address] Indemnity [id number] 2019 Unknown MMO MMO [employer] [id number] 2019-Present [phone] [address] [place] [address] PPO [id number] Social History Date Type Detail Facility Start: 05-01-2011 Tobacco smoking stat us HIIS Never smoked tobacco [facility] Start: 07-16-2020 End: 07-21-2023 Alcohol intake Current non-drinker of alcohol (finding) [facility] Start: 1955 Sex Assigned At Not on file [facility] Start: 05-01-2011 Tobacco use and exposure Smokeless tobacco non-user [facility] Work Phone: Start: 05-01-2019 End: 07-21-2023 History of Social function [facility] Start: 05-01-2019 End: 07-21-2023 Tobacco use panel [facility] Adult Depression Screening Assessment 0 [facility] Clinical Notes 06-03-2022 to 11-14-2023 Aliya Glynn APRN.[employer] BUILD[employer] - 11/14/2023 2:49 PM ESTPatient InstructionsTelephone Encounter - Talisha Carrillo RN - 11/14/2023 1:27 PM ESTTelephone Encounter - Amanda Isbell MD - 09/21/2023 4:48 PM EST Note Date & Type Note Facility 11-14-2023 Note HNO ID: [id number] Author: Aliya Glynn APRN.[employer] Service: ? Author Type: Nurse Practitioner Type: Progress Notes Filed: 11/14/2023 3:03 PM Note Text: Telemedicine Evaluation for COVID-19 Infection MyChart Zoom Video Visit was used for evaluation of this patient. I have communicated my name and active licensure. The patient's identity and physical location were verified at the time of this visit. Either the patient or their legal sales and service representative has been informed of the risks and benefits of -- and alternatives to -- treatment through a remote evaluation and consents to proceed with the evaluation remotely. SUBJECTIVE Kadie Hensley is a 68 year old male who presents with 2 weeks of symptoms that are stable. Currently taking prednisone and Z-zelalem Symptoms include: Fever (?100.4F): No or Chills: No Cough: Yes Shortness of breath: No or Difficulty breathing: No Fatigue: Yes Muscle aches: No Headache: No New loss of smell or taste: Yes Sore throat: No Nasal congestion: Yes or Rhinorrhea: Yes Nausea: No or Vomiting: No Diarrhea: No OTC meds/remedies that patient has tried: OTC cold medicine. High risk category assessment none Exposures: Sick contacts? Yes Family or close contacts with confirmed/probable COVID-19 in last 14 days? Yes OBJECTIVE VIDEO EXAM GENERAL: well appearing, alert, in no acute distress HEENT: no conjunctival injection, pupils equal, moist mucous membranes, oropharynx clear without erythema, sinuses non-tender to self-palpation, and no cervical adenopathy by self-palpation PULMONARY: breathing comfortably on room air , no coughing noted, and no wheezing noted ASSESSMENT/PLAN (U07.1) COVID-19 virus infection (primary encounter diagnosis) - Discussed symptom monitoring and supportive care - Red flag symptoms requiring follow up discussed Past recommended time for prescribing antiviral This patient encounter involved the screening or treatment of novel coronavirus infection (COVID-19). [facility] 11-14-2023 History of Presen t illness Narrative Telemedicine Evaluation for COVID-19 Infection MyChart Zoom Video Visit was used for evaluation of this patient. I have communicated my name and active licensure. The patient's identity and physical location were verified at the time of this visit. Either the patient or their legal sales and service representative has been informed of the risks and benefits of -- and alternatives to -- treatment through a remote evaluation and consents to proceed with the evaluation remotely. SUBJECTIVE Kadie Hensley is a 68 year old male who presents with 2 weeks of symptoms that are stable. Currently taking prednisone and Z-zelalem Symptoms include: Fever (?100.4F): No or Chills: No Cough: Yes Shortness of breath: No or Difficulty breathing: No Fatigue: Yes Muscle aches: No Headache: No New loss of smell or taste: Yes Sore throat: No Nasal congestion: Yes or Rhinorrhea: Yes Nausea: No or Vomiting: No Diarrhea: No OTC meds/remedies that patient has tried: OTC cold medicine. High risk category assessment none Exposures: Sick contacts? Yes Family or close contacts with confirmed/probable COVID-19 in last 14 days? Yes OBJECTIVE VIDEO EXAM GENERAL: well appearing, alert, in no acute distress HEENT: no conjunctival injection, pupils equal, moist mucous membranes, oropharynx clear without erythema, sinuses non-tender to self-palpation, and no cervical adenopathy by self-palpation PULMONARY: breathing comfortably on room air , no coughing noted, and no wheezing noted ASSESSMENT/PLAN (U07.1) COVID-19 virus infection (primary encounter diagnosis) - Discussed symptom monitoring and supportive care - Red flag symptoms requiring follow up discussed Past recommended time for prescribing antiviral This patient encounter involved the screening or treatment of novel coronavirus infection (COVID-19). documented in this encounter [facility] 11-14-2023 Instructions Aliya Glynn, CORRINE.CJ - 11/14/2023 2:49 PM EST How to Manage Common Symptoms Associated with COVID for Adults Fever- Fever is a temperature over 100.4 F and can occur when the body is fighting an infection. To help treat a fever: Drink plenty of fluids and stay well hydrated. Eat small amounts of easy to digest food. Rest. Your body needs rest to recover, but getting up and moving around the house frequently is a good idea. You should try to continue doing your normal daily activities (bathing, toileting, grooming, cooking), though you will probably feel tired, and need to rest often. Avoid any heavy activity or exercise, as this will increase your body temperature. Dress in light clothing and stay covered in a light sheet. Keep the room temperature cool. Take a slightly warm (not cold or cool) bath, or apply damp washcloths to the forehead and wrists. Cough- Cough is a common symptom associated with COVID and can be bothersome. To help treat a cough: Stay well hydrated. Try warm water or tea with lemon and/or honey to help soothe the cough. Use a humidifier to add moisture to the air. Try a product with menthol, like a cough drop or a rub for your chest such as Vicks, which can help reduce cough. Try cough drops. Avoid smoking and other strong odors or perfumes. Try breathing exercises to keep your lungs open and clear. Take a big deep breath through your nose and hold for 5 seconds before slowly releasing. Repeat frequently, while you are awake. Congestion- Runny nose or nasal congestion can occur with COVID. Treatment can help relieve symptoms: Try OTC nasal saline spray, or nasal saline rinse to relieve mucus congestion. Nasal strips can help keep nasal passages open, to increase airflow. Elevating your head with an extra pillow in bed can help reduce congestion. Using a humidifier can increase moisture in the air, and make breathing easier. Sore Throat- Another common symptom with COVID, can be managed at home by: Stay well hydrated. Gargle with salt water - mix teaspoon salt with 1 cup of warm water and gargle. This helps to loosen mucus in the back of the throat and may reduce discomfort. Try ice chips, popsicles or lozenges to soothe the throat. Nausea/Vomiting/Diarrhea- These are common symptoms, and staying hydrated is most important. If you are nauseous or vomiting, start with small sips of water every 10-15 minutes and increase as tolerated. You can try sucking an ice cube too. If tolerating, you can try pedialyte or Gatorade, or flat sprite or sandip-jose luis. Start slowly and increase as you are able to. Instead of meals, try smaller, more frequent snacks. Try eating bland foods like crackers, toast, rice, and applesauce. Avoid spicy, greasy or fried foods and dairy containing foods. Even if you aren't feeling hungry due to lack of smell or taste, it is important to try to take in some food when you are able. After drinking and eating, rest in an upright position for up to two hours as needed to help decrease nauseous feelings. Try closing your eyes, avoid moving and watching TV. Avoid strong odors that can make you feel more nauseated. When to seek emergency medical attention Look for emergency warning signs for COVID-19. If having any of these symptoms, seek emergency medical care immediately: Trouble breathing Persistent pain or pressure in the chest New confusion Inability to wake or stay awake Bluish lips or face *This list is not all possible symptoms. Please call your medical provider for any other symptoms that are severe or concerning to you. documented in this encounter [facility] 11-14-2023 Miscellaneous Notes Formattin g of this note might be different from the original. Patient calling with request for Covid treatment. Patient denies any new or worsening symptoms of which a provider is not aware: No. Denies any Chest pain or SOB. Advised to schedule a visit per MyChart or go to a Test to Treat locations. GO TO THE EMERGENCY ROOM OR CALL 911 IF: * You develop any new symptoms * Your condition worsens * You are concerned or anxious about your condition for any other reason. If you have any questions, you can call Nurse stamp redemption clerk back. documented in this encounter [facility] 10-26-2023 Miscellaneous Notes Formattin g of this note might be different from the original. Pt was recently diagnosed with mod-severe MR. He will be sending in records to Dr Mckeon for surgical review. documented in this encounter [facility] 10-14-2023 Miscellaneous Notes Formattin g of this note might be different from the original. Outside Medical Records: Nephrology Notes received done on 10/14/23 Scanned into Q-Bot view under Scanned Docs Tab Message Forwarded to Dr Isbell Please review Oma Lucero Ma documented in this encounter [facility] 09-21-2023 Miscellaneous Notes Formattin g of this note might be different from the original. Cr 1.4 - microscopic hemature - stable Cr labs atypical pANCA pANCA/cANCA negative per Dr Chad Isbell MD Dr. Bonilla is calling Amanda Isbell MD today with concern regarding patient Kadie Hensley. Dr. Bonilla has been trying to get in touch with Dr. Isbell in regards to this mutual patient. She is requesting a call back. Patient has been identified by name and birthdate. Duration of symptoms: N/A Person calling: caregiver: Dr. Bonilla Call Dr. Bonilla at: [phone] Korina Salgado documented in this encounter [facility] 09-09-2023 Miscellaneous Notes Formattin g of this note might be different from the original. See message below Dr Bonilla would like to talk with you. Outside Medical Records: Nephrology notes received done on 09/09/23 Scanned into Q-Bot view under Encounters Tab Message Forwarded to Dr Isbell Please review Vanessa Gomez Cma Marybeth Bonilla MD in nephrology at [place] calls to speak with Dr. Isbell regarding this patient. Please call her at [phone]. documented in this encounter [facility] 07-21-2023 Note HNO ID: [id number] Author: Amanda Isbell MD Service: ? Author Type: Physician Type: Progress Notes Filed: 07/21/2023 1:28 PM Note Text: Osteoporosis and Metabolic Bone Disease FOLLOW UP VISIT Referring Provider: Date of Service: 07/21/2023 Gender: male Ethnicity: White Age: [age] year old Chief Complaint: Osteoporosis Last Rheumatology visit: 03/11/2020 (with Amanda Isbell) Date of Last Reclast Injection: 07/21/2023 Kadie Hensley is a 68 year old White male who presents on 07/21/2023 for in person visit for follow up of Osteoporosis. He is currently taking hydrocortisone sodium succ/PF. RAPID 3 Nagy Activities of Daily Living No Data Dress self? - Get in and out of bed? - Walk outdoors? - Wash and dry body? - Get in and out of car? - Impression Diagnoses: (M81.8) Idiopathic osteoporosis (primary encounter diagnosis) (N18.31) Stage 3a chronic kidney disease (HCC) (M80.08XA) Age-related osteoporosis with current pathological fracture, vertebra(e), initial encounter for fracture ([facility]) (M80.072A) Age-related osteoporosis with current pathological fracture, left ankle and foot, initial encounter for fracture Patient has a history of fracture(s) Vertebral Fracture (Comment: 3 vert fx) Most Recent BMD Date: 09/26/19 LS T-Score: -4.8 LS Z-Score: -4.4 increase R Hip T-Score: -3.8 R Hip Z-Score: -3.3 increase L Hip T-Score: -3.5 L Hip Z-Score: -2.5 stable BMD Comment: 2018 LS +26%, Hip +6% Osteoporosis FRAX Risk Factors Fracture(s) Vertebral Fracture (Comment: 3 vert fx) No family history of osteoporosis No parent with a hip fracture Not a current smoker no significant glucocorticoid use No rheumatoid arthritis No secondary osteoporosis No alcohol use more than 3 units per day Plan Osteoporosis -3 vert fx -Forteo - sig inc LS +25% but LS T-score still -4.8 (last DXA 2018) -Reclast 02/2020, 06/2022, 07/2023 -CKD - GFR 60 - give Reclast over 40 min - consult renal -DXA and apt 01/2023 -CTX 12/2023 Medication: -Reclast 02/2020, 06/2022, 07/21/2023 -vit D 1000IU -calcium in 800mg citracal Past Meds -eo Physical Therapy: -back protection Lab: Office Visit on 07/21/23 -C TELOPEPTIDE, BETA: 12/2023 Creatinine (mg/dL) Date Value 07/08/2023 1.31 eGFR 60 06/15/2022 1.32 02/26/2020 1.23 10/18/2018 1.24 07/18/2015 1.28 10/09/2014 1.19 10/05/2013 1.04 Radiology: -DXA 01/2024 Requested outside results: Return Visit: 01/2024 Amanda Isbell MD No follow-ups on file. I spent a total of 40 minutes on the date of the service which included preparing to see the patient, [id number] patient care, completing clinical documentation, obtaining and/or reviewing separately obtained history, performing a medically appropriate examination, and counseling and educating the patient/family/caregiver. Amanda Isbell MD cc: PCP: To use this Smartlink, specify the provider ID whose address you want to display, e.g., .[email or web address][1 (where 1 is the provider ID). === Subjective Disease History HISTORY OF PRESENT ILLNESS Patient has a history of fracture(s) Vertebral Fracture (Comment: 3 vert fx) Last Bone Density: 2019 LS T-score -4.8 , Right Hip T-score , Left Hip -3.8T-score -3.5 LS change: stable Hip change: stable Treatments: Antiresorptive Treatments (start date, stop date, comment) Reclast 02/2020, 06/2022, 07/2023 Anabolic Treatments (start date, stop date, comment) Forteo 2017 - sig inc LS Major Risk Factors Fracture(s) Vertebral Fracture (Comment: 3 vert fx) No family history of osteoporosis No parent with a hip fracture Not a current smoker no significant gluticorticoid use No rheumatoid arthritis No secondary osteoporosis No alcohol use more than 3 units per day Transplant: No Osteoporosis History Patient has a history of fracture(s) Vertebral Fracture (Comment: 3 vert fx) Most Recent BMD Date: 09/26/19 LS T-Score: -4.8 LS Z-Score: -4.4 increase R Hip T-Score: -3.8 R Hip Z-Score: -3.3 increase L Hip T-Score: -3.5 L Hip Z-Score: -2.5 stable BMD Comment: 2018 LS +26%, Hip +6% Daily Calcium diet: (Comment: citracal) Daily Calcium supplementation: 800 mg Daily Vitamin D: 1000 IU Current Multivitamin: Yes Dental: ok Link to FRAX Website Tobacco Use Never smoked or used smokeless tobacco. Alcohol Use No. Patient-Entered Data PROMIS Assessments PROMIS Global Health - (T-Scores - the mean of general population = 50. Five points is a clinically meaningful difference.) 10/18/2018 05/01/2019 10/16/2019 Physical T-Score 50.8 44.9 47.7 Mental T-Score 62.5 67.6 53.3 No flowsheet data found.No flowsheet data found.No flowsheet data found. RAPID 3 Disease Activity Weighed Score Levels: 0 - 1: Near Remission 1.3 - 2.0: Low Severity 2.3 - 4.0: Moderate Severity 4.3 - 10.0: High Severity RAPID-3 Weighed Score 12 (more content not included)... [facility] 07-21-2023 Nurse Note Infusion Charting Note: Pt ID by name and birthdate. yes Since the last infusion has patient: Had any major changes to health since last infusion? no Been to the emergency room? no Been Hospitalized? no Had any infections? no Taken any antibiotics? no Had surgery or has upcoming surgery? no In the past 7 days has patient had: Fever/chills/night sweats? no New cough or cold symptoms (including sore throat)? no Nausea, vomiting, diarrhea? no Unusual swelling in ankles or feet? no Burning/blood with urination or had urinary frequency? no New weakness, numbness, stumbling, or falls? no A new rash or open sores? no Medication allergy reviewed and verified: yes. documented in this encounter [facility] 05-17-2023 Miscellaneous Notes Formattin g of this note might be different from the original. Called patient, scheduled him for OV with Dr. Isbell and infusion on 07/21 at 10:20AM. Patient aware he must complete lab work prior. I need to see him since last visit was 2019Jul 21 at 10:20 Need labs in Jun - fasting before 10am Amanda Isbell MD Telephone on 05/14/23 C TELOPEPTIDE, BETA BASIC METABOLIC PNL VITAMIN D 25 HYDROXY Called patient, last Reclast infusion 07/06/22. Will get lab work done in May, patient calling to schedule Reclast and OV with Dr. Isbell. Last saw Dr. Isbell in 2019, told patient I will send Dr. Isbell message and see when to schedule. Patient requesting a call to schedule a Reclast appointment. [phone] (uroc) documented in this encounter [facility] 01-31-2023 Miscellaneous Notes Formattin g of this note might be different from the original. ----- Message from Jen Agudelo sent at 07/06/2022 1:09 PM EDT ----- Regarding: NTX orders Hello Dr. Isbell, This pt came in today for his Reclast infusion. Two urine specimen cups were given to him. Please place NTX and lab orders. Thank you, Jen documented in this encounter [facility] 06-03-2022 Miscellaneous Notes Vipin Isbell, pt's last labs were back in February of 2020, and his last DXA was in 2019. [address] Reclast treatment plan, lab & NTX orders, and DXA. Thank you. documented in this encounter [facility] [facility] Diagnosis Osteoporosis, postmenopausal- Primary Senile osteoporosis [facility] Diagnosis Idiopathic osteoporosis- Primary [facility] Diagnosis Idiopathic osteoporosis- Primary [facility] Diagnosis COVID-19 virus infection- Primary documented in this encounter [facility] Medications Administered Section Inactive Administered Medications - up to 3 most recent administrations Medication Order MAR Action Action Date Dose Rate Site zoledronic acid 5 mg PREMIX piggyback (RECLAST) 5 mg, INTRAVENOUS, at 400 mL/hr, Administer over 40 Minutes, ONCE, 1 dose, On Wed07/21/23 at 1130, Hazardous Potential Reproductive Risk Drug: Use appropriate PPE. New Bag/Syringe/Bottle 07/21/2023 11:12 AM EDT 5 mg 400 mL/hr Summary Purpose Family History No Family History Records Found Advance Directives No Advanced Directives Records Found Additional Source Comments Source Comments (unrecognize d section and content) In the event this informatio n is protected by the Federal Confidentiality of Alcohol and Drug Abuse Patient Records regulations: The Federal rules restrict any use of the information to criminally investigate or prosecute any alcohol or drug abuse patient.[facility] event this information is protected by the Federal Confidentiality of Alcohol and Drug Abuse Patient Records regulations: The Federal rules restrict any use of the information to criminally investigate or prosecute any alcohol or drug abuse patient.[facility] the event this information is protected by the Federal Confidentiality of Alcohol and Drug Abuse Patient Records regulations: The Federal rules restrict any use of the information to criminally investigate or prosecute any alcohol or drug abuse patient.[facility] the event this information is protected by the Federal Confidentiality of Alcohol and Drug Abuse Patient Records regulations: The Federal rules restrict any use of the information to criminally investigate or prosecute any alcohol or drug abuse patient.[facility] the event this information is protected by the Federal Confidentiality of Alcohol and Drug Abuse Patient Records regulations: The Federal rules restrict any use of the information to criminally investigate or prosecute any alcohol or drug abuse patient.[facility] the event this information is protected by the Federal Confidentiality of Alcohol and Drug Abuse Patient Records regulations: The Federal rules restrict any use of the information to criminally investigate or prosecute any alcohol or drug abuse patient.[facility] the event this information is protected by the Federal Confidentiality of Alcohol and Drug Abuse Patient Records regulations: The Federal rules restrict any use of the information to criminally investigate or prosecute any alcohol or drug abuse patient.[facility] the event this information is protected by the Federal Confidentiality of Alcohol and Drug Abuse Patient Records regulations: The Federal rules restrict any use of the information to criminally investigate or prosecute any alcohol or drug abuse patient.[facility] the event this information is protected by the Federal Confidentiality of Alcohol and Drug Abuse Patient Records regulations: The Federal rules restrict any use of the information to criminally investigate or prosecute any alcohol or drug abuse patient.[facility] the event this information is protected by the Federal Confidentiality of Alcohol and Drug Abuse Patient Records regulations: The Federal rules restrict any use of the information to criminally investigate or prosecute any alcohol or drug abuse patient.[facility] the event this information is protected by the Federal Confidentiality of Alcohol and Drug Abuse Patient Records regulations: The Federal rules restrict any use of the information to criminally investigate or prosecute any alcohol or drug abuse patient.[facility] the event this information is protected by the Federal Confidentiality of Alcohol and Drug Abuse Patient Records regulations: The Federal rules restrict any use of the information to criminally investigate or prosecute any alcohol or drug abuse patient.[facility] Reason for Visit (unrecogniz ed section and content) Reason Comments Appointment Reason Comments Infusion Reclast Specialty Diagnoses / Procedures Referred By Contac t Referred To Contact Diagnoses Idiopathic osteoporosis S[place]hi, [place] [address] [place] [address] [facility] [address] [address] Referral ID Status Reason Start Date Expiration Date V isits Requested Visits Authorized [id number] Authorized 06/17/2022 09/15/2022 99 99 Reason Comments Patient Question Reason Comments Patient Update Nephrology Reason Comments Nephrology Notes Reason Comments Post Dc Program Call - Needs Attn Reason Comments Clinical Update Reason Comments Covid19 Concern Care Teams (unrecognized sec tion and content) Car Builder Relationship Specialty Start Date End Date Emy Benitez MD [address] [address] PCP - General Internal Medicine 07/21/23 Car Builder Relationship Specialty Start Date End Date Emy Benitez MD [address] [address] PCP - General Internal Medicine 07/21/23 Car Builder Relationship Specialty Start Date End Date Emy Benitez MD [address] [id number] PCP - General Internal Medicine 07/21/23 Car Builder Relationship Specialty Start Date End Date Emy Benitez MD [address] [address] PCP - General Internal Medicine 07/21/23 Cherelle Bonilla I, DO [address] [phone] Referring Nephrology 08/25/23 Car Builder Relationship Specialty Start Date End Date Emy Benitez MD [address] [address] PCP - General Internal Medicine 07/21/23 Cherelle Bonilla I, DO [address] [phone] Referring Nephrology 08/25/23 Igor Mckeon MD [address] [facility] [address] Surgeon Cardiac Surg 10/27/23 Car Builder Relationship Specialty Start Date End Date Emy Benitez MD [address] [facility] [address] [place], [place] [address] PCP - General Internal Medicine 07/21/23 Cherelle Bonilla I, DO [address] [phone] Referring Nephrology 08/25/23 Igor Mckeon MD [address] [place] [address] Surgeon Cardiac Surg 10/27/23 (unrecognized sect ion and content) No Status Records Found INFORMATION SOURCE (unrecogn ized section and content) FOR RECORDS PERTAINING TO PATIENTS WHO ARE OR HAVE BEEN ENROLLED IN A CHEMICAL DEPENDENCY/SUBSTANCEABUSE PROGRAM, SOME INFORMATION MAY BE OMITTED. This clinical summary was aggregated from multiple sources. Caution should be exercised in using it in the provision of clinical care. This summary normalizes information from multiple sources, and as a consequence, information in this document may materially change the coding, format and clinical context of patient data. In addition, data may be omitted in some cases. CLINICAL DECISIONS SHOULD BE BASED ON THE PRIMARY CLINICAL RECORDS. [employer] provides no warranty or guarantee of the accuracy or completeness of information in this document.
== END | disposition home or self-care (01) ==
LOC: POLAB3 10:00
PROVIDERS: PCP Internal Medicine; Visit Provider Internal Medicine Nephrology
DX: N18.2 Chronic kidney disease, stage 2 (mild) (principal)
CPT/HCPCS: 36415; 80053

== ENCOUNTER → 2023-12-19 | Outpatient (CLI) | payer MEDICARE, BC, SELFPAY ==
--- OUTSIDE RECORDS SUMMARY | 2023-12-19 08:34 | XMS RPT_ITS | CCD ---
Author Name Unknown Address [address] [place] [address] Organization [facility] Care Team Providers Care Internet Salesperson Name Role Phone Unavailable Primary Care Provider Unavailbobbi Benitez MD, Emy Koo Primary Care Provider [phone] Chad Baez DO, Christine Unavailable Linda ANGELA, Igor Unavailable [phone] SONAM JAMES Referring Unavailable AMANDA ISBELL Referring Unavailable EMY BENITEZ Primary Care Unavailable ALIYA GLYNN Attending Unavailable AMANDA ISBELL Attending Unavailable Allergies Allergy Classification Reported Allergen(s) Allergy Type Date of Onset Reaction(s) Facility (13 sources) Sulfamethoxazole / Trimethoprim; Translations: [SULFAMETHOXAZOLE-TR IMETHOPRIM] Drug Allergy 09-08-20 05 Rash [facility] Work Phone: (12 sources) Environmental [Other] Propensity to adverse reactions 06-29-[address] [facility] (1 source) OTHER; Translations: [OTHER] Propensity to adverse reactions (disorder) 06-29-20 11 [facility] Main [place] [facility] Medications Completed/Discontinued Medications Medication Drug Class(es) [...] temperature 97.9 [degF] [facility] Work Phone: [facility] 07-21-2023 11:52-0400 Diastolic blood pressure 96 mm[Hg] [facility] Work Phone: [facility] 07-21-2023 11:52-0400 Heart rate 69 /min Treatment [facility] Work Phone: [facility] 07-21-2023 11:52-0400 Respiratory rate 20 /min Treatment [facility] Work Phone: [facility] 07-21-2023 11:52-0400 Systolic blood pressure 141 mm[Hg] [facility] Work Phone: [facility] Encounters Encounter Date Encounter Type Care Provider Facility Start: 11-14-2023 End: 11-14-2023 Telemedicine consultation with patient Aliya Glynn APRN.HYDROTEL OPERATOR Work Phone: [facility] Start: 11-14-2023 End: 11-14-2023 ambulatory Talisha Carrillo RN [facility] Procedures Date Procedure Procedure Detail Performing Clinician Start: 05-01-2019 Adult depression scr eening assessment Amanda Isbell MD Work Phone: Start: 07-18-2015 Lipid 1996 panel - S calderon or Plasma [facility] Provider Start: 02-10-2010 Colonoscopy Amanda Isbell MD Work Phone: Plan of Treatment Date Care Activity Detail Author Start: 07-08-2026 DIABETES SCREEN DIABETES SCREEN [facility] Start: 07-08-2026 Diabetes Screening Diabetes Screening [facility] Start: 07-16-2025 Urine microalbumin profile [facility] Start: 06-15-2025 DIABETES SCREEN DIABETES SCREEN [facility] Start: 07-16-2023 Covid-19 Vaccine () Covid-19 Vaccine () [facility] Start: 07-16-2023 Influenza vaccination [facility] Start: 06-15-2023 End: 08-15-2023 25-hydroxyvitamin D3 [Mass/volume] in Serum or Plasma VITAMIN D 25 HYDROXY Lab Routine Idiopathic osteoporosis Expected: 06/15/2023, Expires: 08/15/2023 [facility] Work Phone: Immunizations Immunization Date Immunization Notes Care Provider Brinda soto 07-16-2015 tetanus toxoid, redu radames diphtheria toxoid, and acellular pertussis vaccine, adsorbed Amanda Isbell MD Work Phone: [facility] 08-05-2013 influenza virus vacc ine, unspecified formulation Amanda Isbell MD Work Phone: [facility] 08-30-2010 influenza virus vacc ine, unspecified formulation Amanda Isbell MD Work Phone: [facility] 08-08-2009 influenza virus vacc ine, unspecified formulation Amanda Isbell MD Work Phone: [facility] Work Phone: 09-30-2007 influenza virus vacc ine, unspecified formulation Amanda Isbell MD Work Phone: [facility] 09-13-2006 influenza virus vacc ine, unspecified formulation Amanda Isbell MD Work Phone: [facility] Work Phone: 06-08-2005 tetanus and diphther ia toxoids, adsorbed, preservative free, for adult use (2 Lf of tetanus toxoid and 2 Lf of diphtheria toxoid) Amanda Isbell MD Work Phone: [facility] Work Phone: 09-15-2002 pneumococcal polysaccharide vaccine, 23 valent Amanda Isbell MD Work Phone: [facility] Work Phone: Payers Date Payer Category Payer Medicare MEDICARE MEDICAR E A AND B [id number] 2021-Present [phone] [address] [address] [place] [address] Medicare [id number] 2021 Medicare [id number] 2021 Medicare [id number] 2021 Unknown ANTHEM ANTHEM ME DICARE SUPPLEMENT [id number] 2021-Present [phone] [address] [place] [address] Indemnity [id number] 2019 Unknown MMO MMO [employer] [id number] 2019-Present [phone] [address] [place] [address] PPO [id number] Social History Date Type Detail Facility Start: 05-01-2011 Tobacco smoking stat us DCIS Never smoked tobacco [facility] Start: 07-16-2020 End: 07-21-2023 Alcohol intake Current non-drinker of alcohol (finding) [facility] Start: 1955 Sex Assigned At Not on file [facility] Start: 05-01-2011 Tobacco use and exposure Smokeless tobacco non-user [facility] Work Phone: Start: 05-01-2019 End: 07-21-2023 History of Social function [facility] Start: 05-01-2019 End: 07-21-2023 Tobacco use panel [facility] Adult Depression Screening Assessment 0 [facility] Clinical Notes 06-03-2022 to 11-14-2023 Aliya Glynn APRN.HYDROTEL OPERATOR - 11/14/2023 2:49 PM ESTPatient InstructionsTelephone Encounter - Talisha Carrillo RN - 11/14/2023 1:27 PM ESTTelephone Encounter - Amanda Isbell MD - 09/21/2023 4:48 PM EST Note Date & Type Note Facility 11-14-2023 Note HNO ID: [id number] Author: Aliya Glynn APRN.HYDROTEL OPERATOR Service: ? Author Type: Nurse Practitioner Type: Progress Notes Filed: 11/14/2023 3:03 PM Note Text: Telemedicine Evaluation for COVID-19 Infection MyChart Zoom Video Visit was used for evaluation of this patient. I have communicated my name and active licensure. The patient's identity and physical location were verified at the time of this visit. Either the patient or their legal patient admitting representative has been informed of the risks [...] or treatment of novel coronavirus infection (COVID-19). [facility] 11-14-2023 History of Presen t illness Narrative Telemedicine Evaluation for COVID-19 Infection MyChart Zoom Video Visit was used for evaluation of this patient. I have communicated my name and active licensure. The patient's identity and physical location were verified at the time of this visit. Either the patient or their legal patient admitting representative has been informed of the risks [...] coronavirus infection (COVID-19). documented in this encounter [facility] 11-14-2023 Instructions Alyia Glynn, CORRINE.CJ - 11/14/2023 2:49 PM EST [...] concerning to you. documented in this encounter [facility] 11-14-2023 Miscellaneous Notes Formattin g of this [...] have any questions, you can call Nurse song writer back. documented in this encounter [facility] 10-26-2023 Miscellaneous Notes Formattin g of this note might be different from the original. Pt was recently diagnosed with mod-severe MR. He will be sending in records to Dr Mckeon for surgical review. documented in this encounter [facility] 10-14-2023 Miscellaneous Notes Formattin g of this note might be different from the original. Outside Medical Records: Nephrology Notes received done on 10/14/23 Scanned into [employer] view under Scanned Docs Tab Message Forwarded to Dr Isbell Please review Oma Lucero Ma documented in this encounter [facility] 09-21-2023 Miscellaneous Notes Formattin g of this [...] caregiver: Dr. Bonilla Call Dr. Bonilla at: [phone] Korina Salgado documented in this encounter [facility] 09-09-2023 Miscellaneous Notes Formattin g of this note might be different from the original. See message below Dr Bonilla would like to talk with you. Outside Medical Records: Nephrology notes received done on 09/09/23 Scanned into [employer] view under Encounters Tab Message Forwarded to Dr Isbell Please review Vanessa Gomez Cma Marybeth Bonilla MD in nephrology at [facility] calls to speak with Dr. Isbell regarding this patient. Please call her at [phone]. documented in this encounter [facility] 07-21-2023 Note HNO ID: [id number] Author: Amanda Isbell MD Service: ? Author [...] pathological fracture, vertebra(e), initial encounter for fracture ([facility]) (M80.072A) Age-related osteoporosis with current pathological fracture, [...] which included preparing to see the patient, [id number] patient care, completing clinical documentation, obtaining and/or [...] Weighed Score 12 (more content not included)... [facility] 07-21-2023 Nurse Note Infusion Charting Note: Pt [...] and verified: yes. documented in this encounter [facility] 05-17-2023 Miscellaneous Notes Formattin g of this [...] a call to schedule a Reclast appointment. [phone] ([phone]) documented in this encounter [facility] 01-31-2023 Miscellaneous Notes Formattin g of this note might be different from the original. ----- Message from Jen Agudelo sent at 07/06/2022 1:09 PM EDT ----- Regarding: NTX orders Hello Dr. Isbell, This pt came in today for his Reclast infusion. Two urine specimen cups were given to him. Please place NTX and lab orders. Thank you, Jen documented in this encounter [facility] 06-03-2022 Miscellaneous Notes Vipin Isbell, pt's last labs were back in February of 2020, and his last DXA was in [address]. [address] Reclast treatment plan, lab & NTX orders, and DXA. Thank you. documented in this encounter [facility] Diagnosis Osteoporosis, postmenopausal- Primary Senile osteoporosis [facility]* Diagnosis Idiopathic osteoporosis- Primary [facility] Diagnosis Idiopathic osteoporosis- Primary [facility]* Diagnosis COVID-19 virus infection- Primary documented in this encounter [facility] Medications Administered Section Inactive Administered Medications - [...] or prosecute any alcohol or drug abuse patient.[facility] the event this information is protected by the Federal Confidentiality of Alcohol and Drug Abuse Patient Records regulations: The Federal rules restrict any use of the information to criminally investigate or prosecute any alcohol or drug abuse patient.[facility] the event this information is protected by the Federal Confidentiality of Alcohol and Drug Abuse Patient Records regulations: The Federal rules restrict any use of the information to criminally investigate or prosecute any alcohol or drug abuse patient.[facility] the event this information is protected by the Federal Confidentiality of Alcohol and Drug Abuse Patient Records regulations: The Federal rules restrict any use of the information to criminally investigate or prosecute any alcohol or drug abuse patient.[facility] the event this information is protected by the Federal Confidentiality of Alcohol and Drug Abuse Patient Records regulations: The Federal rules restrict any use of the information to criminally investigate or prosecute any alcohol or drug abuse patient.[facility] the event this information is protected by the Federal Confidentiality of Alcohol and Drug Abuse Patient Records regulations: The Federal rules restrict any use of the information to criminally investigate or prosecute any alcohol or drug abuse patient.[facility] Center[facility] the event this information is protected by the Federal Confidentiality of Alcohol and Drug Abuse Patient Records regulations: The Federal rules restrict any use of the information to criminally investigate or prosecute any alcohol or drug abuse patient.[facility] Center[facility] the event this information is protected by the Federal Confidentiality of Alcohol and Drug Abuse Patient Records regulations: The Federal rules restrict any use of the information to criminally investigate or prosecute any alcohol or drug abuse patient.[facility] Center[facility] the event this information is protected by the Federal Confidentiality of Alcohol and Drug Abuse Patient Records regulations: The Federal rules restrict any use of the information to criminally investigate or prosecute any alcohol or drug abuse patient.[facility] CenterIn the event this information is protected by the Federal Confidentiality of Alcohol and Drug Abuse Patient Records regulations: The Federal rules restrict any use of the information to criminally investigate or prosecute any alcohol or drug abuse patient.[facility] Center[facility] the event this information is protected by the Federal Confidentiality of Alcohol and Drug Abuse Patient Records regulations: The Federal rules restrict any use of the information to criminally investigate or prosecute any alcohol or drug abuse patient.[facility] Center[facility] the event this information is protected by the Federal Confidentiality of Alcohol and Drug Abuse Patient Records regulations: The Federal rules restrict any use of the information to criminally investigate or prosecute any alcohol or drug abuse patient.[facility] Reason for Visit (unrecogniz ed section and content) Reason Comments Appointment Reason Comments Infusion Reclast Specialty Diagnoses / Procedures Referred By Contac t Referred To Contact Diagnoses Idiopathic osteoporosis S[place], [place] [address] [place] [address] [facility] Main [facility] [address] Referral ID Status Reason Start Date Expiration Date V isits Requested Visits Authorized [id number] Authorized 06/17/2022 09/15/2022 99 99 Reason Comments Patient Question Reason Comments Patient Update Nephrology Reason Comments Nephrology Notes Reason Comments Post Dc Program Call - Needs Attn Reason Comments Clinical Update Reason Comments Covid19 Concern Care Teams (unrecognized sec tion and content) Internet Salesperson Relationship Specialty Start Date End Date Emy Benitez MD [address] [address] PCP - General Internal Medicine 07/21/23 Internet Salesperson Relationship Specialty Start Date End Date Emy Benitez MD [address] [address] PCP - General Internal Medicine 07/21/23 Internet Salesperson Relationship Specialty Start Date End Date Emy Benitez MD [address] [id number] PCP - General Internal Medicine 07/21/23 Internet Salesperson Relationship Specialty Start Date End Date Emy Benitez MD [address] [address] PCP - General Internal Medicine 07/21/23 Cherelle Bonilla I, DO [address] [id number] Referring Nephrology 08/25/23 Internet Salesperson Relationship Specialty Start Date End Date Emy Benitez MD [address] [address] PCP - General Internal Medicine 07/21/23 Cherelle Bonilla I, DO [address] [phone] Referring Nephrology 08/25/23 Igor Mckeon MD [address] [facility] [place] [address] Surgeon Cardiac Surg 10/27/23 Internet Salesperson Relationship Specialty Start Date End Date Emy Benitez MD [address] [facility] [address] [place], [place] [address] PCP - General Internal Medicine 07/21/23 Cherelle Bonilla I, DO [address] [phone] Referring Nephrology 08/25/23 Igor Mckeon MD [address] [facility] [place] [address] Surgeon Cardiac Surg 10/27/23 (unrecognized [...] BE BASED ON THE PRIMARY CLINICAL RECORDS. [employer] provides no warranty or guarantee of the accuracy or completeness of information in this document.
== END | disposition home or self-care (01) ==
PROVIDERS: PCP Internal Medicine; Visit Provider Internal Medicine Nephrology
DX: N18.2 Chronic kidney disease, stage 2 (mild) (principal)
CPT/HCPCS: 81050

== ENCOUNTER → 2024-03-06 | Outpatient (CLI) | payer MEDICARE, BC, SELFPAY ==
[2024-03-06 09:21] LABS: Hematocrit 40.3 % (40-54); Hemoglobin 13.3 g/dL (13.0-16.5); Mean Corpuscular Hgb 29.8 pg (27.0-32.0); Mean Corpuscular Volume 90.4 fL (80-94); Mean Platelet Vol. 10.1 fl (6.2-12.0); Platelet Count 266 K/mm3 (150-450); RBC Distribution Width CV 12.5 % (11.6-14.6); RBC Distribution Width SD 41.3 fl (35.1-43.9); Red Blood Count 4.46 M/mm3 (4.6-6.2); White Blood Count 6.4 K/mm3 (4.4-11.0)
[2024-03-06 10:29] LABS: Albumin, Serum 3.6 g/dL (3.2-5.0); BUN 24 mg/dL (7-18); BUN/Creat Ratio 16.2 RATIO (10-20); Calcium,Total 8.7 mg/dL (8.5-10.1); Chloride 109 mmol/L (98-107); Creatinine, Serum 1.48 mg/dL (0.70-1.30); EST Glomerular Filtration Rate 50 mL/min (>60); Est Glom Filt Rate - Afr Amer 61 mL/min (>60); Ferritin 48 ng/mL (26-388); Glucose 89 mg/dL (74-106); Iron 53 ug/dL (65-175); Iron Binding Capacity,Total 313 ug/dL (250-450); PERCENT IRON SATURATION 16.9 % (15.0-55.0); Phosphorus 2.5 mg/dL (2.5-4.9); Potassium 4.3 mmol/L (3.5-5.1); Sodium Level 141 mmol/L (136-145)
== END | disposition home or self-care (01) ==
LOC: LAB 08:32
PROVIDERS: PCP Internal Medicine; Referring Provider Internal Medicine Nephrology; Visit Provider Internal Medicine Nephrology
DX: N18.2 Chronic kidney disease, stage 2 (mild) (principal)
CPT/HCPCS: 36415; 80069; 82728; 83540; 83550; 85027

== ENCOUNTER → 2024-07-24 | Outpatient (CLI) | payer MEDICARE, BC, SELFPAY ==
--- NOTE | 2024-07-24 10:11 | PCM.CR.ITP ---
Diagnosis General Information Admitting Diagnosis: MVR 05/08/24 Personal Learning Style:: Audio/Visual, Demonstration, Group, Individual Preference and Written Barriers to Learning: No Barriers Stage of change r/t lifestyle modifications:: Preparation Gave educational material for:: Treating Heart Disease, How The Heart Works, What it means to have Heart Disease, How Coronary Artery Disease is Diagnosed, Heart Procedures, What Heart Medications Do, Risk Factors & Modifications, Living an Active Life, Nutrition, Emotions & Heart Disease, Stress Management & Relaxation and Sleep Disorders & Heart Disease Education/Goals Cardiac Rehabilitation Goals Personal Goals: Initial Assessment: Improve energy level, Participate in home exercise program, Improve muscle strength and endurance, Improve diet and eating habits (eat healthier) and Control risk factors (learn risk factor modification) Scale for measuring improvement of personal goals Diagnosis & Disease Process Outcomes/Goals: Pt IDs own risk factors & lifestyle modifications by Session 10, Verbalizes symptoms of angina & response by session 3., Pt independently manages and Other Additional Outcomes/Goals: Plan/Interventions: Assist Pt to ID & engage in lifestyle modification to reduce CVD risk, Instruct on individual risk factors, Review symptoms of angina & emergency actions, Review secondary diagnosis & identify educational needs. and Other see comment Safety Referral to Physical Therapy: No Referral to [facility] Case Management: No Fall Risk Assessed:: Yes Assistive Devices:: None Exercise - Initial Assessment Visit Date of Eval: 07/24/24 (INITIAL EVAL) Mets: Pre-: >3 METS for 30 minutes by discharge, >5 METS for 30 minutes by discharge and >7 METS for 30 minutes by discharge Physician Prescribed Exercise Modalities: Treadmill, Rower, Schwinn Airdyne AD-7, SciFit Stepper, [email or web address] Pro-II Ergometer and [employer] Lateral [place] Frequency: 3x/week for 12 weeks [36 sessions] Intensity: 60-80% of age predicted maximum heart rate reserve Duration: 30 - 45 minutes Resting Blood Pressure: 116/85 EKG Type: NSR Outcomes & Goals Goals:: Verbalizes understanding of THR, RPE & goal METS by session 6, Documents in home exercise log/reports 30 min aerobic 5 day/wk by DC and Demonstrates accurate pulse taking by DC Intervention & Plan Exercise Program Goals: Instruct on personal THR & RPE, Instruct on MET level & personal MET goal, Show patient to take own pulse /validate performance until accurate and Instruct on home exercise Physical Activity Home Exercise Physical Activity - Home Exercise: Safe Exercise, Warm-up, Self-monitoring, Cool-Down, Home Exercise > 30 min Daily and Sitting Time <3 hours/daily Outcomes & Goals Outcomes/Goals: Demonstrates correct Warm-up/exercise Cool-Down (S3) if = 2.5 METs, Verbalizes symptoms of exercise intolerance by Session 3 (S3), Demonstrate safe equipment use (S3) & follows exercise prescrition (6) and Other: See below Intervention & Plan Plan/Intervention: Instruct warm-up & cool-down if exercising at > 2 METs, Instruct on symptoms of exercise intolerance & actions to take, Instruct & monitor on saf and Assess intial functional capacity & safety risk Nutrition - Initial Assessment Program Goals Nutrition Program Goals Patient has diagnosis of Hyperlipidemia (ICD E78)?: Yes Visit Date of Eval: 07/24/24 (INITIAL EVAL) Cholesterol/Lipids (Other Core Measures) Determine presence & major risk factors that modify LDL goal: Age men > 45 years; women >/= 55 years Outcomes/Goals: Pt IDs own risk factors & lifestyle modifications by Session 10, Verbalizes symptoms of angina & response by session 3., Pt independently manages and Other Additional Outcomes/Goals: Intervention/Plan: Advocate for lipid panel cholesterol medication if applicable, Instruct on personal lipid levels & lipid goals/NCEP guidelines and Instruct on cholesterol Referral to dietitian:: No Diabetes (Other Core Measures) Diabetes Type: Not Applicable Weight Mgt (Other Care) Height: 5 ft 4 in Weight:: 121 lb BMI: 20.7 Diagnosis Overweight/Obesity BMI> 30% ICD-10 E66: No Diagnosis High BMI/Morbid Obesity BMI> 35% ICD-10 Z68: No Outcomes/Goals: Pt sets, maintains & shows weight loss goal & trend during rehab Intervention/Plan: Instruct on ideal BMI & set weight loss goal w/patient Healthy Eating Habits Will attend diet classes:: Yes Outcomes/Goals:: Consume diet rich in vegs,fruits,whole grain/high fiber,fish,lean meat, Limit sat/trans fats,cholesterol & added salts & sugars and Other additional outcome/goals: Intervention/Plan:: Assess current eating habits Education Gave educational materials for:: Signs & symptoms of hypoglycemia, Signs & symptoms of hyperglycemia, Relate diabetes to coronary artery disease and Healthy eating Core - Initial Assessment Visit Date of Eval: 07/24/24 (INITIAL EVAL) Medication Compliance Preventative Medication(s):: Aspirin and Beta saman H/O mental health issues: depression, anxiety, or addiction?: No Doesn?t believe in the benefits of treatment?: No Believes medications are unnecessary or harmful?: No Has a concern about medication side effects?: No Expresses concern over the cost of medications?: No Outcomes/Goals: Verbalizes medications,desired effect & common side effects @ DC, Pt self-reports following medication regimen and Keeps card in wallet w/medications listed by DC Interventions/plans: Instruct on medication effects & side effects, Review medication list w/patient every two weeks and Instruct importance of taking meds as ordered & assist problem solving Tobacco Use Tobacco Use: Non-smoker Hypertension Hypertension Diagnosis:: Not Applicable Resting Blood Pressure:: 116/85 [place] [employer] Hypertension Guidelines Tobacco Cessation Referral Smoking Cessation Referral:: No Individual Education/Counseling:: No Education Schedule Given:: Yes Psychosocial - Initial Assess VIsit Date of Eval: 07/24/24 (INITIAL EVAL) History of previous Mental disease:: No History of Emotional Disorders: None Self-reported stressors: Other (work) and Recent Illness Target Goals Target Goals Psychosocial Test Tool Used:: PHQ-9 Questionnaire phq-9 Severity See PHQ-9 Score: 1 Referral to Behavioral Health PS - Interventions: Yes: Attend Stress Management Classes and No: Referral to Behavioral Health if PHQ-9 score >9:, No: Referral to [facility] and No: Referral to Physician if PHQ-9 if score is 5-9: Outcomes/Goals: See list Psychosocial Outcomes/Goals:: ID's personal stressors & 2 strategies to manage stress by discharge and Other Additional outcome/goals: Intervention/Plan: See List Interventions/Plan:: Assess stressors,coping strategies & signs of derpression on admission, Instruct/assist pt to develop coping & personal stress Mgt strategies, Refer to Behavioral Health if appropriate, Refer to Physician if appropriate, Instruct patient to recognize signs & symptoms of depression, Instruct patient to recog and Other additional plan/intervention Patient Health Questionnaire PHQ-9 Screening Initial Assessment: 1. Little interest or pleasure in doing things: Not at all 2. Feeling down, depressed, or hopeless: Not at all 3. Trouble falling or staying asleep, or sleeping too much: Not at all 4. Feeling tired or having little energy: Several days 5. Poor appetite or overeating: Not at all 6. Feeling bad about yourself -- or that you are a failure or have let yourself or your family down: Not at all 7. Trouble concentrating on things, such as reading the newspaper or watching television: Not at all 8. Moving or speaking so slowly that other people could have noticed. Or the opposite - being so fidgety or restless that you have been moving around a lot more than usual: Not at all 9. Thoughts that you would be better off , or of hurting yourself in some way: Not at all How difficult have these problems made it for you to do your work, take care of things at home, or get along with other people?: Not difficult at all Total Score: 1 DANE-Q SV Test Statements CAD is a disease of the arteries in the heart: False Examples of risk factors for heart disease: True Angina is chest pain or discomfort: False The benefits of resistance training include: True Eating more meat and dairy products: False Anti-platelet medications such as aspirin are important: True The only effective way to manage stress: False An exercise warm-up slowly increases heart rate: True Prepared, processed foods usually have high sodium: True Depression is common after a heart attack: False The statin medications lower cholesterol: False To control blood pressure, lower the amount of sodium: True If someone gets chest discomfort during walking: False Transfats are partially hydrogenated vegetable oils: I Don't Know Sleep apnea that is not treated increases the risk: I Don't Know To control cholesterol, one should become a vegetarian: False Someone knows if he/she is exercising at the right level: True Diabetes cannot be prevented with exercise & health eating: False Stress is a large risk for heart attack: True A diet that can help lower blood pressure is rich in: True Total Score Total Correct Responses: 15 Self-Efficacy 6-Item Scale Initial Assessment: We would like to know how confident you are in doing certain activities. Please select your confidence level for: Fatigue Select Number: 9 Physical Discomfort or Pain Select Number: 7 Emotional Distress Select Number: 10 Other Symptoms or Health Problems Select Number: 7 Different Tasks and Activities Select Number: 9 Medication Select Number: 9 Total Score:: 8 Nutrition Survey Nutrition Survey Instructions Scoring Instructions Nutrition Survey Initial: Have you lost >10 lbs over the past 2 months without trying?: No Are you following a special diet at home for diabetes, low fat, or low salt?: No Are you interested in meeting with a dietitian for help understanding your diet?: Yes Do you eat less than 3 meals a day?: Yes Do you eat fatty meats (mendez, sausage, ribs, etc), fried foods, desserts, large amounts of salad dressings, margarine, butter, or cheese most days?: No Do you have food allergies? [Enter types in comment field]: No Do you eat in restaurants more than 3 times a week?: Yes Do you season food with salt, seasoning salt, or garlic salt?: Yes Do you used canned, boxed, frozen meals, or soups, seasoning packets?: No Total Score:: 4 Exercise - 30-day Assessment Physician Prescribed Exercise Modalities: Treadmill, Rower, Schwinn Airdyne AD-7, SciFit Stepper, SciFit Pro-II Ergometer and SciFit Lateral Staff Technologist Exercise - 60-day Assessment Physician Prescribed Exercise Modalities: Treadmill, Rower, Schwinn Airdyne AD-7, SciFit Stepper, SciFit Pro-II Ergometer and SciFit Lateral [place] Exercise - 90-day Assessment Physician Prescribed Exercise Modalities: Treadmill, Rower, Schwinn Airdyne AD-7, SciFit Stepper, SciFit Pro-II Ergometer and SciFit Lateral [place] Exercise - Final/Discharge Physician Prescribed Exercise Modalities: Treadmill, Rower, Schwinn Airdyne AD-7, SciFit Stepper, SciFit Pro-II Ergometer and SciFit Lateral Staff Technologist Frequency: 3x/week for 12 weeks [36 sessions] Intensity: 60-80% of age predicted maximum heart rate reserve Nutrition - 30-Day Assessment Weight Mgt (Other Care) Height: 5 ft 4 in Weight:: 121 lb BMI: 20.7 Nutrition - 60-Day Assessment Weight Mgt (Other Care) Height: 5 ft 4 in Weight:: 121 lb BMI: 20.7 Core - Final Assessment Hypertension Resting Blood Pressure:: 116/85 [place] [employer] Hypertension Guidelines Core - 60-Day Assessment Hypertension Resting Blood Pressure:: 116/85 [place] [employer] Hypertension Guidelines Psychosocial - 30-Day Assess Target Goals Target Goals Referral to Behavioral Health PS - Interventions: Yes: Attend Stress Management Classes and No: Referral to Behavioral Health if PHQ-9 score >9:, No: Referral to [facility] and No: Referral to Physician if PHQ-9 if score is 5-9: Psychosocial - 60-Day Assess Target Goals Target Goals Referral to Behavioral Health PS - Interventions: Yes: Attend Stress Management Classes and No: Referral to Behavioral Health if PHQ-9 score >9:, No: Referral to [facility] and No: Referral to Physician if PHQ-9 if score is 5-9: Psychosocial - 90-Day Assess Target Goals Target Goals Referral to Behavioral Health PS - Interventions: Yes: Attend Stress Management Classes and No: Referral to Behavioral Health if PHQ-9 score >9:, No: Referral to [facility] and No: Referral to Physician if PHQ-9 if score is 5-9: Psychosocial - Final Assessmen Target Goals Target Goals Psychosocial Test phq-9 Severity See PHQ-9 Score: 1 Referral to Behavioral Health PS - Interventions: Yes: Attend Stress Management Classes and No: Referral to Behavioral Health if PHQ-9 score >9:, No: Referral to [facility] and No: Referral to Physician if PHQ-9 if score is 5-9: Nutrition - 90-Day Assessment Weight Mgt (Other Care) Height: 5 ft 4 in Weight:: 121 lb BMI: 20.7 Nutrition - Final Assessment Program Goals Patient has diagnosis of Hyperlipidemia (ICD E78)?: Yes Weight Mgt (Other Care) Height: 5 ft 4 in Weight:: 121 lb BMI: 20.7
--- NOTE | 2024-07-24 10:19 | CR.HP_ITS ---
CR - History & Physical General Arrival date:: 07/24/24 (INITIAL EVAL) Arrival time:: 10:19 Date of Referral:: 05/10/24 Date of CR Evaluation:: 07/24/24 (INITIAL EVAL) Referring Physician: Igor Mckeon Primary Diagnosis: MVR 05/08/24 History of Present Cardiac Event Onset Date Current stable Angina Pectoris:: No Acute Myocardial Infarction within 12 months:: No Coronary Artery Bypass Graft:: No Heart valve replacement or repair:: Yes (mitral valve) PTCA or coronary stenting:: No Heart or Heart-Lung Transplant:: No Heart Failure EF <35%:: No Were there any complications?: struggled with fatigue post op, but that has subsided Medications Ambulatory Orders ?Medication ?Instructions ?Recorded multivitamin 1 tab PO DAILY 09/25/15 calcium carbonate (Calcium 600) 600 mg PO DAILY 12/03/20 cholecalciferol (vitamin D3) 50 50 mcg PO DAILY 12/03/20 mcg (2,000 unit) capsule fluticasone propionate 50 1 spray intranasal DAILY PRN 12/16/22 mcg/actuation nasal allergies spray,suspension (Flonase Allergy Relief) colchicine 0.6 mg tablet 0.6 mg PO QDAY 05/22/24 metoprolol tartrate 25 mg tablet 25 mg PO BID 05/22/24 teriparatide 20 mcg/dose (600 mcg subcut 05/22/24 mcg/2.4 mL) subcutaneous pen injector aspirin 81 mg tablet,delayed 81 mg PO DAILY 07/24/24 release (Adult Low Dose Aspirin) famotidine PO 07/24/24 pseudoephedrine HCl 30 mg tablet 30 mg PO Q4H PRN allergies 07/24/24 (Nasal Decongestant (pseudoephedrine)) Allergies Allergies Seasonal Allergies: Uncoded Allergy (Mild, Verified 07/24/24 11:32) Other Sleep Disorder Evaluation Hx of Sleep Apnea: No Do you snore loudly (louder than talking or can be heard through closed doors)?: No Do you often feel tired/ fatigued/ sleepy during daytime?: No Has anyone observed you stop breathing during sleep?: No History of Hypertension (for STOP score): No STOP Results: Negative Advanced Directives Advanced Directives Power of Automobile Designer: Yes Living Will: Yes Advance Directives Information Provided: Yes Advance Directives on File: Yes DNR Order?:: No Past Medical History Covid-19 Screening Physicial Symptoms Fever: No Unexplained muscle aches: No Current respiratory symptoms: No Upper respiratory infections symptoms: No Gastro-intestinal symptoms: No [id number] symptoms: No Other Clinical Concerns Has tested positive for COVID-19 in last 30 days: No Exposure Risk Had contact w/person w/symptoms or Covid-19 (+) last 14 days: No Has High Risk Exposures ID'd by Health dept/Inf Control team: No Pertinent Comorbidities 65 years or older:: Yes Lives in Assisted Living facility:: No Has a chronic lung disease or moderate to severe asthma:: No Has a serious heart condition:: Yes Immunocompromised:: No Severely obese (Body Mass Index of 40 or higher):: No Diabetic:: No Has chronic kidney disease undergoing dialysis:: Yes Has liver disease:: No Past Medical Illness Past Medical History Chronic kidney disease (CKD) stage G2/A2, mildly decreased glomerular filtration rate (GFR) between 60-89 mL/min/1.73 square meter and albuminuria creatinine ratio between 30-299 mg/g N18.2 Wears glasses Z97.3 GERD (gastroesophageal reflux disease) K21.9 Non-smoker Z78.9 Impacted cerumen of both ears H61.23 history of broken vertebre History of kidney stones Z87.442 History of fracture Z87.81 Seasonal allergies J30.2 Anemia D64.9 History of pneumonia Z87.01 Osteoporosis M81.0 Past Surgical History Past Surgical History (Updated 07/24/24 @ 11:30 by Inés Good) S/P mitral valve repair Z98.890 History of hernia repair Z98.890, Z87.19 as child Surgical History: - (mitral valve repair 05/08/24) Family History Summary Family History Other Breast cancer CVA (cerebral vascular accident) Osteoporosis Social History Smoking History Smoking Status: Never smoker Hx Tobacco Use: No Hx Smoking Exposure: No Alcohol Use Alcohol Usage: No Substance Abuse Hx Substance Use: No Occupation Occupation (List type of work in comments):: Employed Hours worked per day:: 9 Returned to work on:: 06/05/24 Hobbies, Recreation, Social Activities Hobbies: Walking and Exercise (bicycle) Recreational Activities: I am able to engage in a few activities Social Environment Status Marital Status: Current Living Arrangements Living Environment:: Spouse Children How many children do you have?: 2 Do any of your children live nearby?: No Safety Do you feel safe in your surroundings?: Yes Assistance Do you need any assistance at home?: no Review of Systems Review of Systems Hints Review of Present Symptoms: Reports Appetite - Normal and Sleep - Normal Pain Is Patient Pain Free?: Yes Risk Factor Assessment Vital Signs Pulse Ox: 96 Blood Pressure: 116/85 Pulse Pulse Rate: 81 Hypertension On medication(s)?: metorprolol Blood Pressure Sitting - Right Arm: 116/85 Stress Stress: Work-related Diabetes Nutrition Referral for Diabetes: No Obesity Height: 5 ft 4 in Weight:: 121 lb Weight in Pounds: 121.0 lbs Body Mass Index (BMI): 20.7 Nutritional Referral for Obesity: No Physical Inactivity Physical Inactivity: Reg Exercise 30 min/day and Recreational activity Risk Stratification Risk Guidelines: Lowest Risk: Risk Factor for Smoking and Risk Factor for Obesity, Moderate Risk: Risk Factor for Diabetes, Risk Factor for Hypertension, Risk Factor for Sedentary Lifestyle and Risk Factor for Depression and Highest Risk: Risk Factor for Dyslipidemia For Smoking Smoking Risk Guidelines For Dyslipidemia Dyslipidemia Risk Guidelines For Diabetes Mellitus Diabetes Risk Guidelines For Obesity/Overweight Obesity/Overweight Risk Guidelines For Hypertension Hypertension Risk Guidelines For Sedentary Lifestyle Sedentary Lifestyle Risk Guidelines For Depression Depression Risk Guidelines Family History Family History Other Breast cancer CVA (cerebral vascular accident) Osteoporosis Motivation Motivation to Participate On a scale of 1 to 10, how prepared are you to commit to attending program?: 9 What do you see as barriers to successfully being able to complete the program?: work schedule What do you see as the benefits of succesfully completing the program? In other words, what do you hope to get out of participating in the program?: increase strength and endurance Are there issues you are dealing with that will interfere with completing the program?: work related scheduling conflicts Do you have a spouse or signficant other, family or friends who will help support you to complete the program?: yes
[2024-07-24 10:47] VITALS: BMI 20.7
[2024-07-24 11:24] VITALS: BP 116/85
[2024-07-24 11:35] VITALS: BP 116/85; PULSE 81; O2SAT 96; BMI 20.7
== END | disposition home or self-care (01) ==
PROVIDERS: PCP Internal Medicine
DX: Z00.00 Encounter for general adult medical examination without abnormal findings (principal)

== ENCOUNTER 2024-08-14 08:00 | Outpatient (RCR) | payer MEDICARE, BC, SELFPAY ==
[2024-07-24 10:47] VITALS: BMI 20.7
== END 2024-08-14 23:59 ==
LOC: CR 08:00
PROVIDERS: PCP Internal Medicine
DX: Z95.4 Presence of other heart-valve replacement (principal)
CPT/HCPCS: 93798

== ENCOUNTER 2024-09-13 08:00 | Outpatient (RCR) | payer MEDICARE, BC, SELFPAY ==
[2024-07-24 10:47] VITALS: BMI 20.7
--- NOTE | 2024-08-23 07:12 | CR.ITP_ITS ---
Exercise - Initial Assessment Visit Session #:: 11 Physician Prescribed Exercise Modalities: Treadmill, Schwinn Airdyne AD-7 and SciFit Stepper Nutrition - Initial Assessment Weight Mgt (Other Care) Height: 5 ft 4 in Weight:: 127 lb BMI: 21.8 Psychosocial - Initial Assess Target Goals Target Goals Referral to Behavioral Health PS - Interventions: Yes: Attend Stress Management Classes Patient Health Questionnaire PHQ-9 Screening 30-Day Re-eval Assessment: 1. Little interest or pleasure in doing things: Not at all 2. Feeling down, depressed, or hopeless: Not at all 3. Trouble falling or staying asleep, or sleeping too much: Not at all 4. Feeling tired or having little energy: Several days 5. Poor appetite or overeating: Not at all 6. Feeling bad about yourself -- or that you are a failure or have let yourself or your family down: Not at all 7. Trouble concentrating on things, such as reading the newspaper or watching television: Not at all 8. Moving or speaking so slowly that other people could have noticed. Or the opposite - being so fidgety or restless that you have been moving around a lot more than usual: Not at all 9. Thoughts that you would be better off , or of hurting yourself in some way: Not at all How difficult have these problems made it for you to do your work, take care of things at home, or get along with other people?: Not difficult at all Total Score: 1 Self-Efficacy 6-Item Scale 30-Day Re-eval Assessment: We would like to know how confident you are in doing certain activities. Please select your confidence level for: Fatigue Select Number: 9 Physical Discomfort or Pain Select Number: 7 Emotional Distress Select Number: 10 Other Symptoms or Health Problems Select Number: 7 Different Tasks and Activities Select Number: 9 Medication Select Number: 9 Total Score:: 8 Nutrition Survey Nutrition Survey Instructions Scoring Instructions Exercise - 30-day Assessment Visit Date of Eval: 08/23/24 Session #:: 11 Physician Prescribed Exercise Modalities: Treadmill, Schwinn Airdyne AD-7 and SciFit Stepper Frequency: 3x/week for 12 weeks [36 sessions] Intensity: 60-80% of age predicted maximum heart rate reserve Duration: 30 - 45 minutes Current METSs:: 5.4 Target Heart Rate:: 91-107 Current RPE:: 12 Maximum Excercise HR:: 94 Resting Blood Pressure: 100/72 Maximum Exercise Blood Pressure: 128/72 EKG Type: NSR with rare PAC Outcomes & Goals Goals:: Verbalizes understanding of THR, RPE & goal METS by session 6, Documents in home exercise log/reports 30 min aerobic 5 day/wk by DC, Demonstrates accurate pulse taking by DC and Other additional outcome/goals: see below Intervention & Plan Exercise Program Goals: Instruct on personal THR & RPE, Instruct on MET level & personal MET goal, Show patient to take own pulse /validate performance until accurate, Instruct on home exercise and Other additional plan/int 30-day Reassessments 30 day Reassessments:: Progressing Reassessment Notes & Comments:: RPE explained Physical Activity Home Exercise Physical Activity - Home Exercise: Safe Exercise, Warm-up, Self-monitoring, Cool-Down, Home Exercise > 30 min Daily and Sitting Time <3 hours/daily Outcomes & Goals Outcomes/Goals: Demonstrates correct Warm-up/exercise Cool-Down (S3) if = 2.5 METs, Verbalizes symptoms of exercise intolerance by Session 3 (S3), Demonstrate safe equipment use (S3) & follows exercise prescrition (6) and Other: See below Intervention & Plan Plan/Intervention: Instruct warm-up & cool-down if exercising at > 2 METs, Instruct on symptoms of exercise intolerance & actions to take, Instruct & monitor on saf, Assess intial functional capacity & safety risk and Other See below 30-day Reassessments 30 day Reassessments:: Progressing Reassessment Notes & Comments:: warm up encouraged Exercise - 60-day Assessment Physician Prescribed Exercise Modalities: Treadmill, Schwinn Airdyne AD-7 and SciFit Stepper Exercise - 90-day Assessment Physician Prescribed Exercise Modalities: Treadmill, Schwinn Airdyne AD-7 and SciFit Stepper Exercise - Final/Discharge Physician Prescribed Exercise Modalities: Treadmill, Schwinn Airdyne AD-7 and SciFit Stepper Nutrition - 30-Day Assessment Program Goals Nutrition Program Goals Patient has diagnosis of Hyperlipidemia (ICD E78)?: Yes Visit Date of Eval: 08/23/24 Session #:: 11 Cholesterol/Lipids (Other Core Measures) Determine presence & major risk factors that modify LDL goal: Hypertension or hypertensive medication, Low HDL cholesterol <40 mg/dL*, Family history of premature CHD in Male < 55 years: female <65 yearsFa and Age men > 45 years; women >/= 55 years Outcomes/Goals: Pt IDs own risk factors & lifestyle modifications by Session 10, Verbalizes symptoms of angina & response by session 3., Pt independently manages and Other Additional Outcomes/Goals: Intervention/Plan: Advocate for lipid panel cholesterol medication if applicable, Instruct on personal lipid levels & lipid goals/NCEP guidelines, Instruct on cholesterol and Other additional plan/int Referral to dietitian:: No 30-day Reassessments:: Progressing Reassessment Notes & Comments:: pt is scheduled to attend nutrition class Diabetes (Other Core Measures) Diabetes Type: Not Applicable Weight Mgt (Other Care) Height: 5 ft 4 in Weight:: 127 lb BMI: 21.8 Diagnosis Overweight/Obesity BMI> 30% ICD-10 E66: No Diagnosis High BMI/Morbid Obesity BMI> 35% ICD-10 Z68: No Outcomes/Goals: Pt sets, maintains & shows weight loss goal & trend during rehab and Other additional outcomes/goals Intervention/Plan: Instruct on ideal BMI & set weight loss goal w/patient, Assist pt to ID & incorporate diet changes for weight loss by S9, Refer to Structured Weight Loss program as appropriate, Encourage goal of using 250- 300dcal per session for weight loss and Other additional plan/interventions 30 day Reassessments:: Met Healthy Eating Habits Will attend diet classes:: Yes Outcomes/Goals:: Consume diet rich in vegs,fruits,whole grain/high fiber,fish,lean meat, Limit sat/trans fats,cholesterol & added salts & sugars and Other additional outcome/goals: Intervention/Plan:: Assess current eating habits and Other Additional plan/interventions 30-day Reassessments:: Progressing Reassessment Notes & Comments:: pt to attend nutrition class Education Gave educational materials for:: Signs & symptoms of hypoglycemia, Signs & symptoms of hyperglycemia, Relate diabetes to coronary artery disease and Healthy eating Nutrition - 60-Day Assessment Weight Mgt (Other Care) Height: 5 ft 4 in Weight:: 127 lb BMI: 21.8 Core - 30-Day Assessment Visit Date of Eval: 08/23/24 Session #:: 11 Medication Compliance Preventative Medication(s):: Aspirin and Beta saman H/O mental health issues: depression, anxiety, or addiction?: No Doesn?t believe in the benefits of treatment?: No Believes medications are unnecessary or harmful?: No Has a concern about medication side effects?: No Expresses concern over the cost of medications?: No Outcomes/Goals: Verbalizes medications,desired effect & common side effects @ DC, Pt self-reports following medication regimen, Keeps card in wallet w/medications listed by DC and Other additional outcome/goals: Interventions/plans: Instruct on medication effects & side effects, Review medication list w/patient every two weeks, Instruct importance of taking meds as ordered & assist problem solving and Other additional 30-day Reassessments:: Progressing Reassessment Notes & Comments:: pt currently taking meds as prescribed Tobacco Use Tobacco Use: Non-smoker Hypertension Hypertension Diagnosis:: Not Applicable Resting Blood Pressure:: 100/72 [place] [employer] Hypertension Guidelines Peak Exercise Blood Pressure:: 128/72 Outcomes/Goals: Able to verbalize/achieve optimal blood pressure <130/80, Incorporates diet changes & exercise for blood pressure control by DC and Other additional outcomes/goals Interventions/plan: Instruct on optimal blood pressure, hypertension & medications, Instruct on effects of sodium, alcohol, stress, exercise &hypertension and Other additional plan/interventions 30 day Reassessments:: Met Tobacco Cessation Referral Smoking Cessation Referral:: No Individual Education/Counseling:: No Education Schedule Given:: Yes Psychosocial - 30-Day Assess VIsit Date of Eval: 08/23/24 Session #:: 11 History of previous Mental disease:: No Target Goals Target Goals Psychosocial Test Tool Used:: [employer] QOL Cardiac and PHQ-9 Questionnaire phq-9 Severity Referral to Behavioral Health PS - Interventions: Yes: Attend Stress Management Classes Outcomes/Goals: See list Psychosocial Outcomes/Goals:: ID's personal stressors & 2 strategies to manage stress by discharge and Other Additional outcome/goals: Intervention/Plan: See List Interventions/Plan:: Assess stressors,coping strategies & signs of derpression on admission, Instruct/assist pt to develop coping & personal stress Mgt strategies, Refer to Behavioral Health if appropriate, Refer to Physician if appropriate, Instruct patient to recognize signs & symptoms of depression, Instruct patient to recog and Other additional plan/intervention 30-day Reassessments: 30 day Reassessments:: Met Psychosocial - 60-Day Assess Target Goals Target Goals Referral to Behavioral Health PS - Interventions: Yes: Attend Stress Management Classes Outcomes/Goals: See list Psychosocial Outcomes/Goals:: ID's personal stressors & 2 strategies to manage stress by discharge and Other Additional outcome/goals: Psychosocial - 90-Day Assess Target Goals Target Goals Referral to Behavioral Health PS - Interventions: Yes: Attend Stress Management Classes Psychosocial - Final Assessmen Target Goals Target Goals Referral to Behavioral Health PS - Interventions: Yes: Attend Stress Management Classes Nutrition - 90-Day Assessment Weight Mgt (Other Care) Height: 5 ft 4 in Weight:: 127 lb BMI: 21.8 Nutrition - Final Assessment Weight Mgt (Other Care) Height: 5 ft 4 in Weight:: 127 lb BMI: 21.8
[2024-08-23 07:19] VITALS: BP 100/72; BMI 21.8
== END 2024-09-14 23:59 ==
LOC: CR 08:00
PROVIDERS: PCP Internal Medicine
DX: Z95.4 Presence of other heart-valve replacement (principal)
CPT/HCPCS: 93798

== ENCOUNTER 2024-10-11 08:00 | Outpatient (RCR) | payer MEDICARE, BC, SELFPAY ==
[2024-08-23 07:19] VITALS: BMI 21.8
[2024-09-15 00:24] VITALS: BP 100/72
--- NOTE | 2024-09-22 07:04 | PCM.CR.ITP ---
Exercise - Initial Assessment Physician Prescribed Exercise Modalities: Treadmill, Schwinn Airdyne AD-7 and SciFit Stepper Nutrition - Initial Assessment Weight Mgt (Other Care) Height: 5 ft 4 in Weight:: 128 lb BMI: 21.9 Core - Initial Assessment Hypertension Resting Blood Pressure:: 90/62 [place] [employer] Hypertension Guidelines Psychosocial - Initial Assess Target Goals Target Goals Referral to Behavioral Health PS - Interventions: Yes: Attend Stress Management Classes Patient Health Questionnaire PHQ-9 Screening 60-Day Re-eval Assessment: 1. Little interest or pleasure in doing things: Not at all 2. Feeling down, depressed, or hopeless: Not at all 3. Trouble falling or staying asleep, or sleeping too much: Not at all 4. Feeling tired or having little energy: Several days 5. Poor appetite or overeating: Not at all 6. Feeling bad about yourself -- or that you are a failure or have let yourself or your family down: Not at all 7. Trouble concentrating on things, such as reading the newspaper or watching television: Not at all 8. Moving or speaking so slowly that other people could have noticed. Or the opposite - being so fidgety or restless that you have been moving around a lot more than usual: Not at all 9. Thoughts that you would be better off , or of hurting yourself in some way: Not at all How difficult have these problems made it for you to do your work, take care of things at home, or get along with other people?: Not difficult at all Total Score: 1 Self-Efficacy 6-Item Scale 60-Day Re-eval Assessment: We would like to know how confident you are in doing certain activities. Please select your confidence level for: Fatigue Select Number: 9 Physical Discomfort or Pain Select Number: 7 Emotional Distress Select Number: 10 Other Symptoms or Health Problems Select Number: 7 Different Tasks and Activities Select Number: 9 Medication Select Number: 9 Total Score:: 8 Nutrition Survey Nutrition Survey Instructions Scoring Instructions Exercise - 30-day Assessment Physician Prescribed Exercise Modalities: Treadmill, Schwinn Airdyne AD-7 and SciFit Stepper Exercise - 60-day Assessment Visit Date of Eval: 09/22/24 Session #:: 20 Physician Prescribed Exercise Modalities: Treadmill, Schwinn Airdyne AD-7 and SciFit Stepper Frequency: 3x/week for 12 weeks [36 sessions] Intensity: 60-80% of age predicted maximum heart rate reserve Duration: 30 - 45 minutes Current METSs:: 5.7 Target Heart Rate:: 91-107 Current RPE:: 12-13 Maximum Excercise HR:: 114 Resting Blood Pressure: 90/70 Maximum Exercise Blood Pressure: 112/70 EKG Type: NSR to ST rare PAC Outcomes & Goals Goals:: Verbalizes understanding of THR, RPE & goal METS by session 6, Documents in home exercise log/reports 30 min aerobic 5 day/wk by DC, Demonstrates accurate pulse taking by DC and Other additional outcome/goals: see below Intervention & Plan Exercise Program Goals: Instruct on personal THR & RPE, Instruct on MET level & personal MET goal, Show patient to take own pulse /validate performance until accurate, Instruct on home exercise and Other additional plan/int 30-day Reassessments 30 day Reassessments:: Progressing Reassessment Notes & Comments:: Pt has been able to increase his exercise intensity. Pt understands the benefits of exercise and staying active. Physical Activity Home Exercise Physical Activity - Home Exercise: Safe Exercise, Warm-up, Self-monitoring, Cool-Down, Home Exercise > 30 min Daily and Sitting Time <3 hours/daily Outcomes & Goals Outcomes/Goals: Demonstrates correct Warm-up/exercise Cool-Down (S3) if = 2.5 METs, Verbalizes symptoms of exercise intolerance by Session 3 (S3), Demonstrate safe equipment use (S3) & follows exercise prescrition (6) and Other: See below Intervention & Plan Plan/Intervention: Instruct warm-up & cool-down if exercising at > 2 METs, Instruct on symptoms of exercise intolerance & actions to take, Instruct & monitor on saf, Assess intial functional capacity & safety risk and Other See below 30-day Reassessments 30 day Reassessments:: Progressing Reassessment Notes & Comments:: Proper cool down explained to pt. Pt is able to return demonstration. Exercise - 90-day Assessment Physician Prescribed Exercise Modalities: Treadmill, Schwinn Airdyne AD-7 and SciFit Stepper Exercise - Final/Discharge Physician Prescribed Exercise Modalities: Treadmill, Schwinn Airdyne AD-7 and SciFit Stepper Nutrition - 30-Day Assessment Weight Mgt (Other Care) Height: 5 ft 4 in Weight:: 128 lb BMI: 21.9 Nutrition - 60-Day Assessment Program Goals Nutrition Program Goals Patient has diagnosis of Hyperlipidemia (ICD E78)?: Yes Visit Date of Eval: 09/22/24 Session #:: 20 Cholesterol/Lipids (Other Core Measures) Determine presence & major risk factors that modify LDL goal: Hypertension or hypertensive medication, Low HDL cholesterol <40 mg/dL*, Family history of premature CHD in Male < 55 years: female <65 yearsFa and Age men > 45 years; women >/= 55 years Outcomes/Goals: Pt IDs own risk factors & lifestyle modifications by Session 10, Verbalizes symptoms of angina & response by session 3., Pt independently manages and Other Additional Outcomes/Goals: Intervention/Plan: Advocate for lipid panel cholesterol medication if applicable, Instruct on personal lipid levels & lipid goals/NCEP guidelines, Instruct on cholesterol and Other additional plan/int 30-day Reassessments:: Progressing Reassessment Notes & Comments:: Risk factors and risk factor modification explained. Pt demonstrates understanding. Diabetes (Other Core Measures) Diabetes Type: Not Applicable Weight Mgt (Other Care) Height: 5 ft 4 in Weight:: 128 lb BMI: 21.9 Diagnosis Overweight/Obesity BMI> 30% ICD-10 E66: No Diagnosis High BMI/Morbid Obesity BMI> 35% ICD-10 Z68: No Outcomes/Goals: Pt sets, maintains & shows weight loss goal & trend during rehab and Other additional outcomes/goals Intervention/Plan: Instruct on ideal BMI & set weight loss goal w/patient, Assist pt to ID & incorporate diet changes for weight loss by S9, Refer to Structured Weight Loss program as appropriate, Encourage goal of using 250-300dcal per session for weight loss and Other additional plan/interventions 30 day Reassessments:: Met Reassessment Notes & Comments:: Pt is at a healthy weight. Healthy Eating Habits Will attend diet classes:: Yes Outcomes/Goals:: Consume diet rich in vegs,fruits,whole grain/high fiber,fish,lean meat, Limit sat/trans fats,cholesterol & added salts & sugars and Other additional outcome/goals: Intervention/Plan:: Assess current eating habits and Other Additional plan/interventions 30-day Reassessments:: Met Reassessment Notes & Comments:: Pt has attended nutrition class. Pt demonstrates understanding of a healthy diet. Education Gave educational materials for:: Signs & symptoms of hypoglycemia, Signs & symptoms of hyperglycemia, Relate diabetes to coronary artery disease and Healthy eating Core - Final Assessment Hypertension Resting Blood Pressure:: 90/62 [place] [employer] Hypertension Guidelines Core - 60-Day Assessment Visit Date of Eval: 09/22/24 Session #:: 20 Medication Compliance Preventative Medication(s):: Aspirin and Beta saman H/O mental health issues: depression, anxiety, or addiction?: No Doesn?t believe in the benefits of treatment?: No Believes medications are unnecessary or harmful?: No Has a concern about medication side effects?: No Expresses concern over the cost of medications?: No Outcomes/Goals: Verbalizes medications,desired effect & common side effects @ DC, Pt self-reports following medication regimen, Keeps card in wallet w/medications listed by DC and Other additional outcome/goals: Interventions/plans: Instruct on medication effects & side effects, Review medication list w/patient every two weeks, Instruct importance of taking meds as ordered & assist problem solving and Other additional 30-day Reassessments:: Met Reassessment Notes & Comments:: Pt is taking his meds as prescribed. Pt understands the benefits. Tobacco Use Tobacco Use: Non-smoker Hypertension Hypertension Diagnosis:: Not Applicable Resting Blood Pressure:: 90/70 Resting Blood Pressure:: 90/62 [place] [employer] Hypertension Guidelines Peak Exercise Blood Pressure:: 112/70 Outcomes/Goals: Able to verbalize/achieve optimal blood pressure <130/80, Incorporates diet changes & exercise for blood pressure control by DC and Other additional outcomes/goals Interventions/plan: Instruct on optimal blood pressure, hypertension & medications, Instruct on effects of sodium, alcohol, stress, exercise &hypertension and Other additional plan/interventions 30 day Reassessments:: Met Reassessment Notes & Comments:: Pt's bp's are within AHA's normal guidelines. Tobacco Cessation Referral Smoking Cessation Referral:: No Individual Education/Counseling:: No Education Schedule Given:: Yes Psychosocial - 30-Day Assess Target Goals Target Goals Referral to Behavioral Health PS - Interventions: Yes: Attend Stress Management Classes Outcomes/Goals: See list Psychosocial Outcomes/Goals:: ID's personal stressors & 2 strategies to manage stress by discharge and Other Additional outcome/goals: Psychosocial - 60-Day Assess VIsit Date of Eval: 09/22/24 Session #:: 20 History of previous Mental disease:: No Target Goals Target Goals Psychosocial Test Tool Used:: [employer] QOL Cardiac and PHQ-9 Questionnaire phq-9 Severity Referral to Behavioral Health PS - Interventions: Yes: Attend Stress Management Classes Outcomes/Goals: See list Psychosocial Outcomes/Goals:: ID's personal stressors & 2 strategies to manage stress by discharge and Other Additional outcome/goals: Intervention/Plan: See List Interventions/Plan:: Assess stressors,coping strategies & signs of derpression on admission, Instruct/assist pt to develop coping & personal stress Mgt strategies, Refer to Behavioral Health if appropriate, Refer to Physician if appropriate, Instruct patient to recognize signs & symptoms of depression, Instruct patient to recog and Other additional plan/intervention 30-day Reassessments: 30 day Reassessments:: Met Reassessment Notes & Comments:: Pt denies any psychosocial issues at this time. Psychosocial - 90-Day Assess Target Goals Target Goals Referral to Behavioral Health PS - Interventions: Yes: Attend Stress Management Classes Psychosocial - Final Assessmen Target Goals Target Goals Referral to Behavioral Health PS - Interventions: Yes: Attend Stress Management Classes Nutrition - 90-Day Assessment Weight Mgt (Other Care) Height: 5 ft 4 in Weight:: 128 lb BMI: 21.9 Nutrition - Final Assessment Weight Mgt (Other Care) Height: 5 ft 4 in Weight:: 128 lb BMI: 21.9
[2024-09-22 07:18] VITALS: BP 90/62; BP 90/70; BMI 21.9
== END 2024-10-14 23:59 ==
LOC: CR 08:00
PROVIDERS: PCP Internal Medicine
DX: Z95.4 Presence of other heart-valve replacement (principal)
CPT/HCPCS: 93798

== ENCOUNTER 2024-10-30 08:00 | Outpatient (RCR) | payer MEDICARE, BC, SELFPAY ==
[2024-09-22 07:18] VITALS: BMI 21.9
[2024-10-15 00:20] VITALS: BP 100/72; BP 90/62; BP 90/70
--- NOTE | 2024-10-20 08:09 | CR.ITP_ITS ---
Exercise - Initial Assessment Physician Prescribed Exercise Modalities: Treadmill, Schwinn Airdyne AD-7 and SciFit Stepper Nutrition - Initial Assessment Weight Mgt (Other Care) Height: 5 ft 4 in Weight:: 130 lb BMI: 22.3 Psychosocial - Initial Assess Target Goals Target Goals Referral to Behavioral Health PS - Interventions: Yes: Attend Stress Management Classes Patient Health Questionnaire PHQ-9 Screening 90-Day Re-eval Assessment: 1. Little interest or pleasure in doing things: Not at all 2. Feeling down, depressed, or hopeless: Not at all 3. Trouble falling or staying asleep, or sleeping too much: Not at all 4. Feeling tired or having little energy: Several days 5. Poor appetite or overeating: Not at all 6. Feeling bad about yourself -- or that you are a failure or have let yourself or your family down: Not at all 7. Trouble concentrating on things, such as reading the newspaper or watching television: Not at all 8. Moving or speaking so slowly that other people could have noticed. Or the opposite - being so fidgety or restless that you have been moving around a lot more than usual: Not at all How difficult have these problems made it for you to do your work, take care of things at home, or get along with other people?: Not difficult at all Total Score: 1 Self-Efficacy 6-Item Scale 90-Day Re-eval Assessment: We would like to know how confident you are in doing certain activities. Please select your confidence level for: Fatigue Select Number: 9 Physical Discomfort or Pain Select Number: 7 Emotional Distress Select Number: 10 Other Symptoms or Health Problems Select Number: 7 Different Tasks and Activities Select Number: 9 Medication Select Number: 9 Total Score:: 8 Nutrition Survey Nutrition Survey Instructions Scoring Instructions Exercise - 30-day Assessment Physician Prescribed Exercise Modalities: Treadmill, Schwinn Airdyne AD-7 and SciFit Stepper Exercise - 60-day Assessment Physician Prescribed Exercise Modalities: Treadmill, Schwinn Airdyne AD-7 and SciFit Stepper Exercise - 90-day Assessment Visit Date of Eval: 10/20/24 Session #:: 31 Physician Prescribed Exercise Modalities: Treadmill, Schwinn Airdyne AD-7 and SciFit Stepper Frequency: 3x/week for 12 weeks [36 sessions] Intensity: 60-80% of age predicted maximum heart rate reserve Duration: 30 - 45 minutes Current METSs:: 7 Target Heart Rate:: 91-122 Current RPE:: 12-13 Maximum Excercise HR:: 122 Resting Blood Pressure: 90/62 Maximum Exercise Blood Pressure: 118/78 EKG Type: NSR to ST rare PAC an occas PVC, isolated couplet. Outcomes & Goals Goals:: Verbalizes understanding of THR, RPE & goal METS by session 6, Documents in home exercise log/reports 30 min aerobic 5 day/wk by DC, Demonstrates accurate pulse taking by DC and Other additional outcome/goals: see below Intervention & Plan Exercise Program Goals: Instruct on personal THR & RPE, Instruct on MET level & personal MET goal, Show patient to take own pulse /validate performance until accurate, Instruct on home exercise and Other additional plan/int 30-day Reassessments 30 day Reassessments:: Met Reassessment Notes & Comments:: Pt is ready to exercise on his own. Pt listens to his body while exercising. Pt will be given his workloads upon discharge with instructions on frequency, duration, and exercise intensity. Physical Activity Home Exercise Physical Activity - Home Exercise: Safe Exercise, Warm-up, Self-monitoring, Cool-Down, Home Exercise > 30 min Daily and Sitting Time <3 hours/daily Outcomes & Goals Outcomes/Goals: Demonstrates correct Warm-up/exercise Cool-Down (S3) if = 2.5 METs, Verbalizes symptoms of exercise intolerance by Session 3 (S3), Demonstrate safe equipment use (S3) & follows exercise prescrition (6) and Other: See below Intervention & Plan Plan/Intervention: Instruct warm-up & cool-down if exercising at > 2 METs, In struct on symptoms of exercise intolerance & actions to take, Instruct & monitor on saf, Assess intial functional capacity & safety risk and Other See below 30-day Reassessments 30 day Reassessments:: Met Reassessment Notes & Comments:: Pt is ready to exercise on his own. Pt listens to his body while exercising, understands the symptoms of exercise intolerance, and takes the appropriate actions . Exercise - Final/Discharge Physician Prescribed Exercise Modalities: Treadmill, Schwinn Airdyne AD-7 and SciFit Stepper Nutrition - 30-Day Assessment Weight Mgt (Other Care) Height: 5 ft 4 in Weight:: 130 lb BMI: 22.3 Nutrition - 60-Day Assessment Weight Mgt (Other Care) Height: 5 ft 4 in Weight:: 130 lb BMI: 22.3 Core - 30-Day Assessment Hypertension [place] [employer] Hypertension Guidelines Reassessment Notes & Comments:: Pt's BP's are within AHA's normal limits. Pt encouraged to keep a healthy weight and low sodium diet. Core - Final Assessment Hypertension [place] [employer] Hypertension Guidelines Reassessment Notes & Comments:: Pt's BP's are within AHA's normal limits. Pt encouraged to keep a healthy weight and low sodium diet. Core - 90 Day Assessment Visit Date of Eval: 10/20/24 Session #:: 31 Medication Compliance Preventative Medication(s):: Aspirin and Beta saman H/O mental health issues: depression, anxiety, or addiction?: No Doesn?t believe in the benefits of treatment?: No Believes medications are unnecessary or harmful?: No Has a concern about medication side effects?: No Expresses concern over the cost of medications?: No Outcomes/Goals: Verbalizes medications,desired effect & common side effects @ DC, Pt self-reports following medication regimen, Keeps card in wallet w/medications listed by DC and Other additional outcome/goals: Interventions/plans: Instruct on medication effects & side effects, Review medication list w/patient every two weeks, Instruct importance of taking meds as ordered & assist problem solving and Other additional 30-day Reassessments:: Met Reassessment Notes & Comments:: 09/22/24 Pt had his metoprolol tartrate decreased to 12.5 mg BID. Pt is taking his meds as prescribed. Pt understands the benefits of taking his meds. Will continue to monitor. Tobacco Use Tobacco Use: Non-smoker Hypertension Hypertension Diagnosis:: Not Applicable Resting Blood Pressure:: 90/62 [place] [employer] Hypertension Guidelines Peak Exercise Blood Pressure:: 118/78 Outcomes/Goals: Able to verbalize/achieve optimal blood pressure <130/80, Incorporates diet changes & exercise for blood pressure control by DC and Other additional outcomes/goals Interventions/plan: Instruct on optimal blood pressure, hypertension & medications, Instruct on effects of sodium, alcohol, stress, exercise &hypertension and Other additional plan/interventions 30 day Reassessments:: Met Reassessment Notes & Comments:: Pt's BP's are within AHA's normal limits. Pt encouraged to keep a healthy weight and low sodium diet. Tobacco Cessation Referral Smoking Cessation Referral:: No Individual Education/Counseling:: No Education Schedule Given:: Yes Psychosocial - 30-Day Assess Target Goals Target Goals Referral to Behavioral Health PS - Interventions: Yes: Attend Stress Management Classes Psychosocial - 60-Day Assess Target Goals Target Goals Referral to Behavioral Health PS - Interventions: Yes: Attend Stress Management Classes Psychosocial - 90-Day Assess VIsit Date of Eval: 10/20/24 Session #:: 31 History of previous Mental disease:: No Target Goals Target Goals Psychosocial Test Tool Used:: [employer] QOL Cardiac and PHQ-9 Questionnaire phq-9 Severity Referral to Behavioral Health PS - Interventions: Yes: Attend Stress Management Classes Outcomes/Goals: See list Psychosocial Outcomes/Goals:: ID's personal stressors & 2 strategies to manage stress by discharge and Other Additional outcome/goals: Intervention/Plan: See List Interventions/Plan:: Assess stressors,coping strategies & signs of derpression on admission, Instruct/assist pt to develop coping & personal stress Mgt strategies, Refer to Behavioral Health if appropriate, Refer to Physician if appropriate, Instruct patient to recognize signs & symptoms of depression, Instruct patient to recog and Other additional plan/intervention 30-day Reassessments: 30 day Reassessments:: Met Reassessment Notes & Comments:: Pt denies any psychosocial issues at this time. Will continue to monitor. Psychosocial - Final Assessmen Target Goals Target Goals Referral to Behavioral Health PS - Interventions: Yes: Attend Stress Management Classes Nutrition - 90-Day Assessment Program Goals Nutrition Program Goals Patient has diagnosis of Hyperlipidemia (ICD E78)?: Yes Visit Date of Eval: 10/20/24 Session #:: 31 Cholesterol/Lipids (Other Core Measures) Determine presence & major risk factors that modify LDL goal: Hypertension or hypertensive medication, Low HDL cholesterol <40 mg/dL*, Family history of premature CHD in Male < 55 years: female <65 yearsFa and Age men > 45 years; women >/= 55 years Outcomes/Goals: Pt IDs own risk factors & lifestyle modifications by Session 10, Verbalizes symptoms of angina & response by session 3., Pt independently manages and Other Additional Outcomes/Goals: Intervention/Plan: Advocate for lipid panel cholesterol medication if applicable, Instruct on personal lipid levels & lipid goals/NCEP guidelines, Instruct on cholesterol and Other additional plan/int 30-day Reassessments:: Met Reassessment Notes & Comments:: Pt understands his risk factors and how to minimize his risk factors through a healthy diet, taking meds as prescribed, and a consistent exercise routine. Diabetes (Other Core Measures) Diabetes Type: Not Applicable Weight Mgt (Other Care) Height: 5 ft 4 in Weight:: 130 lb BMI: 22.3 Diagnosis Overweight/Obesity BMI> 30% ICD-10 E66: No Diagnosis High BMI/Morbid Obesity BMI> 35% ICD-10 Z68: No Outcomes/Goals: Pt sets, maintains & shows weight loss goal & trend during rehab and Other additional outcomes/goals Intervention/Plan: Instruct on ideal BMI & set weight loss goal w/patient, Assist pt to ID & incorporate diet changes for weight loss by S9, Refer to Structured Weight Loss program as appropriate, Encourage goal of using 250- 300dcal per session for weight loss and Other additional plan/interventions 30 day Reassessments:: Met Reassessment Notes & Comments:: Pt is currently at a healthy weight. Pt understands what a heart healthy diet is. Pt is encouraged to keep a food log to help stay on track with his diet. Healthy Eating Habits Will attend diet classes:: Yes Outcomes/Goals:: Consume diet rich in vegs,fruits,whole grain/high fiber,fish,lean meat, Limit sat/trans fats,cholesterol & added salts & sugars and Other additional outcome/goals: Intervention/Plan:: Assess current eating habits and Other Additional plan/interventions 30-day Reassessments:: Met Reassessment Notes & Comments:: Pt has attended nutrition class. Pt understands what a heart healthy diet is. Pt is encouraged to keep a food log to help stay on track with his diet. Education Gave educational materials for:: Signs & symptoms of hypoglycemia, Signs & symptoms of hyperglycemia, Relate diabetes to coronary artery disease and Healthy eating Nutrition - Final Assessment Weight Mgt (Other Care) Height: 5 ft 4 in Weight:: 130 lb BMI: 22.3
[2024-10-20 08:18] VITALS: BP 90/62
[2024-10-20 08:31] VITALS: BP 90/62; BMI 22.3
== END 2024-11-14 23:59 ==
LOC: CR 08:00
PROVIDERS: PCP Internal Medicine
DX: Z95.4 Presence of other heart-valve replacement (principal)
CPT/HCPCS: 93798

== ENCOUNTER → 2024-11-23 | Outpatient (CLI) | payer MEDICARE, BC, SELFPAY ==
[2024-11-20 09:31] VITALS: BMI 22.3
[2024-11-23 08:04] LABS: Absolute Lymphocyte Count 1.78 X10^3/uL (0.83-4.51); Absolute Neutrophil Count 5.4 X10^3/uL (2.0-7.7); Basophil# 0.07 X10^3/uL; Basophil% 0.8 % (0-1); Eosinophil# 0.49 X10^3/uL; Eosinophils% 5.7 % (0-5); Hemoglobin 12.8 g/dL (13.0-16.5); Lymphocyte # 1.78 X10^3/ul (0.83-4.51); Lymphocyte % 20.8 % (19-41); Mean Corp Hgb Conc 32.8 g/dL (32-36); Mean Corpuscular Hgb 30.4 pg (27.0-32.0); Mean Corpuscular Volume 92.6 fL (80-94); Mean Platelet Vol. 9.6 fl (6.2-12.0); Monocyte# 0.83 X10^3/uL; Monocyte% 9.7 % (0-10); NRBC Flagged by Analyzer 0 % (0-5); Neutrophil # 5.35 X10^3/uL (2.7-7.7); Neutrophil % 62.4 % (47-70); Platelet Count 290 K/mm3 (150-450); RBC Distribution Width CV 12.9 % (11.6-14.6); RBC Distribution Width SD 43.5 fl (35.1-43.9); Red Blood Count 4.21 M/mm3 (4.6-6.2); White Blood Count 8.6 K/mm3 (4.4-11.0)
[2024-11-23 08:25] LABS: PTHIN 36.8 pg/mL (18.4-80.1)
[2024-11-23 08:28] LABS: Vitamin D,25 Hydroxy 52.7 ng/mL
[2024-11-23 08:30] LABS: ALB/GLOB Ratio 1.1 RATIO (0.9-2.4); AST(SGOT) 14 U/L (15-37); Alanine Aminotransfer ALT/SGPT 28 U/L (16-61); Albumin, Serum 3.6 g/dL (3.2-5.0); Alkaline Phosphatase 91 U/L (45-117); Anion Gap 4 (5-15); BUN 26 mg/dL (7-18); BUN/Creat Ratio 17.2 RATIO (10-20); Calcium,Total 9.4 mg/dL (8.5-10.1); Chloride 108 mmol/L (98-107); Cholesterol 225 mg/dL (200); Creatinine, Serum 1.51 mg/dL (0.70-1.30); EST Glomerular Filtration Rate 49 mL/min (>60); Est Glom Filt Rate - Afr Amer 59 mL/min (>60); Globulin 3.2 g/dL (2.2-4.2); Glucose 94 mg/dL (74-106); High Density Lipoprotein 49 mg/dL; PSA,Total - Annual Screen 2.32 ng/mL (0.00-4.00); Phosphorus 2.2 mg/dL (2.5-4.9); Potassium 4.6 mmol/L (3.5-5.1); Protein, Total 6.8 g/dL (6.4-8.2); Sodium Level 139 mmol/L (136-145); Triglycerides 317 mg/dL; Very Low Density Lipoprotein 63 mg/dL (5-40)
== END | disposition home or self-care (01) ==
PROVIDERS: PCP Internal Medicine; Referring Provider Internal Medicine Nephrology; Visit Provider Internal Medicine Nephrology
DX: N18.2 Chronic kidney disease, stage 2 (mild) (principal); M81.0 Age-related osteoporosis without current pathological fracture; E55.9 Vitamin D deficiency, unspecified; Z12.5 Encounter for screening for malignant neoplasm of prostate
CPT/HCPCS: 80053; 80061; 82306; 83735; 83970; 84100; 84153; 85025; G0103

== ENCOUNTER → 2025-08-21 | Outpatient (CLI) | payer MEDICARE, BC, SELFPAY ==
[2025-06-01 14:21] VITALS: BMI 22.3
[2025-08-21 12:13] LABS: Hematocrit 41.9 % (40-54); Hemoglobin 13.7 g/dL (13.0-16.5); Mean Corp Hgb Conc 32.7 g/dL (32-36); Mean Corpuscular Volume 92.3 fL (80-94); Mean Platelet Vol. 9.8 fl (6.2-12.0); Platelet Count 280 K/mm3 (150-450); RBC Distribution Width CV 13.2 % (11.6-14.6); RBC Distribution Width SD 44.5 fl (35.1-43.9); Red Blood Count 4.54 M/mm3 (4.6-6.2); White Blood Count 8.3 K/mm3 (4.4-11.0)
[2025-08-21 13:10] LABS: Albumin, Serum 4.3 g/dL (3.4-4.8); Anion Gap 12 (5-15); BUN 22 mg/dL (4-19); BUN/Creat Ratio 16.2 RATIO (10-20); Calcium,Total 9.6 mg/dL (7.6-11.0); Carbon Dioxide 22.2 mmol/L (21.0-32.0); Chloride 105 mmol/L (98-108); Glucose 84 mg/dL (70-99); Potassium 4.1 mmol/L (3.3-5.1)
== END | disposition home or self-care (01) ==
LOC: POLAB3 12:04
PROVIDERS: PCP Internal Medicine; Visit Provider Internal Medicine Nephrology
DX: D50.9 Iron deficiency anemia, unspecified (principal); N18.31 Chronic kidney disease, stage 3a
CPT/HCPCS: 36415; 80069; 85027